=== PATIENT | female | born 1955 | race Caucasian/White ===

== ENCOUNTER 2016-10-28 06:17 | Day surgery (SDC) | payer OTHER ==
[2016-10-27 15:28] VITALS: BMI 34.1
[2016-10-28] VITALS (16 sets, daily range): BP systolic 124–156; BP diastolic 61–93; PULSE 58–78; RESP 17–18; Ht 152.4 cm; Wt 82.0 kg
[~2016-10-28] VITALS: Ht 152.4 cm; Wt 82.0 kg
[2016-10-28] MEDS ORDERED: FENTAnyl 50 MCG/ML VIAL ONE ×2 (07:00→11:30)
[2016-10-28] MEDS ORDERED: SOD CHLORIDE 0.9% 1,000 ML IV SCH (07:00)
[2016-10-28] MEDS ORDERED: CEFAZOLIN 2 GM/50 ML (PMX) 50 ML IVPB SCH (07:00)
[2016-10-28] MEDS ORDERED: PROPOFOL 40 ML ONE (09:58)
[2016-10-28] MEDS ORDERED: ISOSULFAN BLUE 1% 5 ML INJ SC ONE (10:04)
[2016-10-28 10:14] LABS: BASOPHILS % 0.7 % (0.0-2.0); EOSINOPHILS # 0.3 10^3/ul (0.0-0.5); EOSINOPHILS % 6.4 % (0.0-7.0); HEMATOCRIT 36.5 % (37.0-47.0); LYMPHOCYTES # 1.3 10^3/ul (0.8-2.9); LYMPHOCYTES % 29.1 % (15.0-51.0); MEAN CORPUSCULAR HEMOGLOBIN 30.6 pg (29.0-33.0); MEAN CORPUSCULAR HGB CONC 32.9 g/dl (32.0-37.0); MEAN CORPUSCULAR VOLUME 93.1 fl (82.0-101.0); MEAN PLATELET VOLUME 9.9 fl (7.4-10.4); MONOCYTE # 0.3 10^3/ul (0.3-0.9); MONOCYTES % 7.6 % (0.0-11.0); NEUTROPHIL # 2.4 10^3/ul (1.6-7.5); PLATELET COUNT 278 10^3/UL (140-440); RED BLOOD COUNT 3.92 10^6/ul (4.20-5.40); RED CELL DISTRIBUTION WIDTH 13.6 % (11.5-14.5); WHITE BLOOD COUNT 4.4 10^3/ul (4.8-10.8)
[2016-10-28 10:18] LABS: CALCIUM 8.9 mg/dl (8.4-10.2); CREATININE 0.51 mg/dl (0.44-1.00); POTASSIUM 4.4 mmol/L (3.5-5.1)
[2016-10-28 10:24] LABS: INR 0.92; PARTIAL THROMBOPLASTIN TIME 25.9 Sec (25.0-35.0); PROTIME 12.4 Sec (12.2-14.2)
[2016-10-28] MEDS ORDERED: LEVO25TA53 PO (10:28)
[2016-10-28] MEDS ORDERED: OMEP40CA6 PO (10:28)
[2016-10-28] MEDS ORDERED: NOL20 PO (10:28)
--- NOTE | 2016-10-28 10:28 | RADRPT ---
PROCEDURE: XR Chest. CLINICAL INDICATION: Breast cancer, preoperative TECHNIQUE: Single frontal view of the chest was obtained COMPARISON: None FINDINGS: The heart and mediastinum are within normal limits. The lungs are clear. There is no pleural effusion or pneumothorax. RPTAT: AA IMPRESSION: No acute disease. .Fadi Bacon MD, MD Date Time Electronically viewed and signed by .Fadi Bacon MD, on 10/28/2016 10:28 .S/
[2016-10-28] MEDS ORDERED: hydrALAzine 20 MG INJ IV PRN (10:30)
[2016-10-28] MEDS ORDERED: HYDROmorphONE (0.2 MG/ML) 10ML SYG IV PRN ×3 (10:30)
[2016-10-28] MEDS ORDERED: MEPERIDINE 25 MG INJ IV PRN (10:30)
[2016-10-28] MEDS ORDERED: LABETALOL HCL 20MG INJ IV PRN (10:30)
[2016-10-28] MEDS ORDERED: OXYCODONE/ACETAMINOPHEN (5/325) TAB PO PRN ×2 (10:30)
[2016-10-28] MEDS ORDERED: ONDANSETRON 4 MG INJ IV PRN (10:30)
[2016-10-28] MEDS ORDERED: FENTAnyl 50 MCG/ML VIAL IV PRN ×3 (10:30)
[2016-10-28] MEDS ORDERED: EPHEDrine SULFATE 50 MG/5 ML SYG IV PRN (10:30)
[2016-10-28] MEDS ORDERED: DEXAMETHASONE 4 MG/ML 1 ML INJ ONE (11:19)
--- NOTE | 2016-10-28 11:50 | RADRPT ---
Vent Rate: 55 bpm RR Interval: 0 msec CO Interval: 146 msec QRS Duration: 84 msec QT Interval: 458 msec QTC Interval: 438 msec P-R-T [place]: 37 - -26 - 22 degrees Sinus bradycardia Cannot rule out Anterior infarct , age undetermined Abnormal ECG Electronically Signed By: Bakari Bryan [id number]
[2016-10-28] MEDS ORDERED: ONDANSETRON 4 MG INJ ONE (12:26)
--- NOTE | 2016-10-28 13:02 | OPR ---
DATE OF OPERATION: 10/28/2016 PREOPERATIVE DIAGNOSIS: Invasive cancer, right breast. POSTOPERATIVE DIAGNOSIS: Invasive cancer, right breast. OPERATION PERFORMED: Right needle-directed partial mastectomy and axillary dissection utilizing sen tinel lymph node technique. SURGEON: Ramírez Sheets MD PLANER TAILER: Saúl Mcmanus MD ANESTHESIA: General. ANESTHESIOLOGIST: Dr. Mcfarlane. INDICATIONS FOR PROCEDURE: The patient is a 61-year-old female. She had a previous left breast can cer that was treated in [facility]. She was being followed with surveillance mammography and was fou nd to have a suspicious lesion in the right breast. Subsequent workup including biopsy revealed an approximately 1 cm well-differentiated cancer. She was counseled as to the risks versus benefits of needle-directed right partial mastectomy and sentinel lymph node biopsy. She consented and was sindi eduled for surgery. DESCRIPTION OF PROCEDURE: The patient on the morning of surgery, presented to [facility] where she underwent localization of the lesion performed by attending [facility] radiologist, Dr. Xena Kingsley. Subsequently, she was brought to the operating theater, placed under general anesthesia. The right breast and axillary region was prepped and draped in usu al sterile fashion. Approximately 4 mL of 1% Lymphazurin blue dye was then injected peritumorally. The breast was gently massaged for approximately 12 minutes. At this point, a 3 to 4 cm incision w as made in the right axillary hairline. Subcutaneous tissue was dissected with cautery down through the clavipectoral fascia. A dye-stained lymphatic was identified, but on tracing it deep into leve l I tissue, a definite sentinel node was not appreciated. Therefore, Dr. Sheets made the decision to remove level I lymph node tissue with blunt dissection along the chest wall. The long thoracic ner ve was identified and kept out of harm's way. More superiorly, the axillary vein and thoracodorsal neurovascular bundles were identified and kept out of harm's way. Level I anyi tissue was then met iculously resected with a combination of cautery and the LigaSure device. Specimen was sent for alberta ss analysis and subsequently for permanent pathologic analysis. The wound was irrigated. Minimal b leeding was controlled with cautery. A #10 Croatian Gabriel-Navarro drain was then brought through the right mid axillary wall, cut to size, laid within the axilla. It was secured in place with 2-0 nylo n suture in the standard fashion. The incision was then closed with a 4-0 Vicryl suture in subcutic ular fashion. Attention was then directed to performing the partial mastectomy. A curvilinear incision was made i n the region of the previously placed localization wire. Subcutaneous tissue was dissected with cau angela. The skin edges were then elevated with skin hooks and wide circumferential dissection of the tissue associated with the wire then took place, taking great care to ensure adequate margin. Speci men was elevated, transected, oriented, and sent for permanent pathologic analysis. The wound was i rrigated. Minimal bleeding was controlled with cautery, and the skin incision was reapproximated wi th a 4-0 Vicryl suture in subcuticular fashion. Benzoin and Steri-Strips were applied to both incis ions. The patient tolerated the procedure well. The estimated blood loss was 30 mL. There were no complications and the patient was transported in stable condition to the recovery room where a circ umferential compression dressing was applied. Dictated By: RAMÍREZ MARIN/AMBIKA Conf#: [id number] DID#: [id number]
== END 2016-10-28 21:00 | disposition home or self-care (01) ==
LOC: SDS 06:17
PROVIDERS: ATTEND Surgery Surgical Oncology
DX: D05.11 Intraductal carcinoma in situ of right breast (principal)
CPT/HCPCS: 19301; 38500; 38792; 71010; 80048; 85025; 85610; 85730; 88307; 93005; J1100; J1170; J2405; J3010; Z7512; Z7610; Q9968

== ENCOUNTER 2016-11-19 08:05 | Day surgery (SDC) | payer OTHER ==
[~2016-11-19] VITALS: Ht 154.9 cm; Wt 81.9 kg
[2016-11-19] VITALS (13 sets, daily range): BP systolic 93–157; BP diastolic 54–76; PULSE 62–76; RESP 12–18; Ht 154.9 cm; Wt 81.9 kg
[~2016-11-19 08:05] MED LIST: LEVO25TA53 PO; NOL20 PO; OMEP40CA6 PO
--- NOTE | 2016-11-19 10:11 | RADRPT ---
PROCEDURE: XR Chest. CLINICAL INDICATION: Preop. TECHNIQUE: Single frontal chest x-ray. COMPARISON: Chest radiograph 11/25/2016. FINDINGS: The cardiomediastinal silhouette is unremarkable. Aortic atherosclerotic vascular calcifications are identified. Prominent interstitial pulmonary markings are noted, likely represent chronic changes. There is sca rring in the left upper lung zone. No pneumothorax, pleural effusion or consolidation is seen. No acute osseous abnormality is noted. IMPRESSION: 1. Chronic interstitial pulmonary changes. Scarring in the left upper lung zone. No significant int erval change. 2. Mild aortic atherosclerosis. 3. Otherwise no acute cardiopulmonary abnormality. RPTAT: PP .Mellisa Nunes MD, MD Date Time Electronically viewed and signed by .Mellisa Nunes MD, on 11/19/2016 10:11 .N/
[2016-11-19 10:40] LABS: ADD SCAN DIFF NO
[2016-11-19 10:43] LABS: EOSINOPHILS # 0.2 10^3/ul (0.0-0.5); EOSINOPHILS % 4.8 % (0.0-7.0); HEMATOCRIT 34.9 % (37.0-47.0); HEMOGLOBIN 11.9 g/dl (12.0-16.0); LYMPHOCYTES # 1.4 10^3/ul (0.8-2.9); MEAN CORPUSCULAR HEMOGLOBIN 31.9 pg (29.0-33.0); MEAN CORPUSCULAR HGB CONC 34.1 g/dl (32.0-37.0); MEAN CORPUSCULAR VOLUME 93.6 fl (82.0-101.0); MEAN PLATELET VOLUME 9.7 fl (7.4-10.4); MONOCYTE # 0.3 10^3/ul (0.3-0.9); MONOCYTES % 7.9 % (0.0-11.0); PLATELET COUNT 261 10^3/UL (140-415); RED BLOOD COUNT 3.73 10^6/ul (4.20-5.40); RED CELL DISTRIBUTION WIDTH 13.4 % (11.5-14.5); WHITE BLOOD COUNT 3.9 10^3/ul (4.8-10.8)
[2016-11-19 10:50] LABS: INR 0.98
[2016-11-19 10:51] LABS: PARTIAL THROMBOPLASTIN TIME 25.4 Sec (25.0-35.0)
[2016-11-19] MEDS ORDERED: SOD CHLORIDE 0.9% 1,000 ML IV ONE (11:00)
[2016-11-19] MEDS ORDERED: CEFAZOLIN 2 GM/50 ML (PMX) 50 ML IVPB ONE (11:00)
[2016-11-19 11:25] LABS: CALCIUM 8.9 mg/dl (8.4-10.2); CREATININE 0.52 mg/dl (0.44-1.00); POTASSIUM 4.6 mmol/L (3.5-5.1)
[2016-11-19] MEDS ORDERED: ROCURONIUM 50 MG INJ ONE (11:38)
[2016-11-19] MEDS ORDERED: LIDOCAINE 100 MG SYRINGE ONE (11:38)
[2016-11-19] MEDS ORDERED: MIDAZOLAM 1 MG/ML 2 ML INJ ONE (11:38)
[2016-11-19] MEDS ORDERED: NEOSTIGMINE 3 MG/3 ML SYRINGE ONE (11:38)
[2016-11-19] MEDS ORDERED: GLYCOPYRROLATE 0.4 MG INJ ONE (11:38)
[2016-11-19] MEDS ORDERED: ONDANSETRON 4 MG INJ ONE (11:38)
[2016-11-19] MEDS ORDERED: DEXAMETHASONE 4 MG/ML 1 ML INJ ONE (11:38)
[2016-11-19] MEDS ORDERED: PROPOFOL 20 ML ONE (11:38)
[2016-11-19] MEDS ORDERED: CEFAZOLIN 1 GM INJ ONE (11:38)
[2016-11-19] MEDS ORDERED: TRIMETHOBENZAMIDE 100 MG/ML VIAL IM PRN (12:30)
[2016-11-19] MEDS ORDERED: HYDROCODONE/APAP (7.5/325) TAB PO PRN (12:30)
[2016-11-19] MEDS ORDERED: HYDROmorphONE (0.2 MG/ML) 10ML SYG IV PRN ×2 (12:30)
[2016-11-19] MEDS ORDERED: DIPHENHYDRAMINE 50 MG INJ IV PRN (12:30)
[2016-11-19] MEDS ORDERED: MEPERIDINE 25 MG INJ IV PRN (12:30)
[2016-11-19] MEDS ORDERED: LABETALOL HCL 20MG INJ IV PRN (12:30)
[2016-11-19] MEDS ORDERED: FENTAnyl 50 MCG/ML VIAL IV PRN ×3 (12:30)
[2016-11-19] MEDS ORDERED: MIDAZOLAM 1 MG/ML 2 ML INJ IV PRN (12:30)
[2016-11-19] MEDS ORDERED: EPHEDrine SULFATE 50 MG/5 ML SYG IV PRN (12:30)
[2016-11-19] MEDS ORDERED: ONDANSETRON 4 MG INJ IV PRN (12:30)
[2016-11-19] MEDS ORDERED: hydrALAzine 20 MG INJ IV PRN (12:30)
--- NOTE | 2016-11-19 12:34 | OPR ---
DATE OF OPERATION: 11/19/2016 PREOPERATIVE DIAGNOSIS: Invasive cancer of the right breast, need for right reexcision partial mast ectomy. POSTOPERATIVE DIAGNOSIS: Invasive cancer of the right breast, need for right reexcision partial mas tectomy. OPERATION PERFORMED: Right reexcision partial mastectomy. ANESTHESIA: General. ANESTHESIOLOGIST: Clayton Fields MD SURGEON: Ramírez Sheets MD 1ST [employer]: Wilmer Richardson MD INDICATIONS FOR PROCEDURE: The patient is a 61-year-old female who was diagnosed with invasive canc er of the right breast. She underwent surgical treatment and on pathology was found to have inadequ ate margins. She was counseled as to need for reexcision partial mastectomy. She consented and was scheduled for surgery. DESCRIPTION OF PROCEDURE: The patient was brought to the operating theater, placed under general an esthesia. The right breast was prepped and draped in the usual sterile fashion. The previous surgi ana incision was reincised using 15 blade scalpel. The seroma cavity was entered. The seroma was e vacuated with suction. The inadequate margin was posterior. Therefore, a complete 360 degree resec tion of the posterior margin took place. Specimen was transected, oriented, and sent for permanent pathologic analysis. The wound was irrigated. Minimal bleeding was controlled with cautery. The s kin was then reapproximated with a deep dermal layer of 4-0 Vicryl sutures in interrupted fashion, f ollowed by final skin approximation with 5-0 PDS sutures in subcuticular fashion. Benzoin and Steri -Strips were then applied. Patient tolerated procedure well. Estimated blood loss was 20 mL. Ther e were no complications and the patient was transported in stable condition to the recovery room. Dictated By: RAMÍREZ SHEETS MD TL/NTS Conf#: [id number] DID#: [id number] CC: WILMER RICHARDSON MD;*EndCC*
[2016-11-19] MEDS: HYDROmorphONE (0.2 MG/ML) 10ML SYG IV PRN ×2 (13:03→13:19)
== END 2016-11-19 15:30 | disposition home or self-care (01) ==
LOC: SDS 08:05
PROVIDERS: ATTEND Surgery Surgical Oncology
DX: N64.1 Fat necrosis of breast (principal); N60.31 Fibrosclerosis of right breast; Z85.3 Personal history of malignant neoplasm of breast
CPT/HCPCS: 19303; 71010; 80048; 85025; 85610; 85730; 88307; 93005; J0690; J1100; J1170; J2001; J2175; J2250; J2405; J2710; J3010; Z7512; Z7610

== ENCOUNTER 2016-12-09 15:16 | Emergency (ER) | payer OTHER ==
[~2016-12-09] VITALS: Wt 76.0 kg
[2016-12-09] MEDS ORDERED: ONDANSETRON 4 MG INJ IV STA (17:20)
[2016-12-09] MEDS: morphine 4 MG/ML VIAL IV STA ×2 (17:20→18:55)
[2016-12-09] MEDS ORDERED: SOD CHLORIDE 0.9% 1,000 ML IV STA (17:20)
--- NOTE | 2016-12-09 17:49 | RADRPT ---
PROCEDURE: XR Chest 1 View. CLINICAL INDICATION: Abnormal breath sounds, abdominal pain. TECHNIQUE: AP view of the chest was obtained. COMPARISON: November 19, 2016 FINDINGS: The heart size is within normal limits. Calcified atherosclerosis is noted in the aorta. The lungs are hyperexpanded. No consolidations are identified. No pneumothorax is seen. Diffuse mild intersti tial prominence in both lungs is unchanged. Osseous structures are intact. IMPRESSION: Calcified atherosclerosis in the aorta. Hyperexpanded lungs with chronic mild interstitial prominence in both lungs. Findings could reflect COPD. RPTAT: AA .Dajuan Mayes MD, Date Time Electronically viewed and signed by .Dajuan Mayes MD, on 12/09/2016 17:49 .P/
[2016-12-09] MEDS ORDERED: CLINDAMYCIN 900 MG/D5W (PMX) 50 ML IVPB SCH (18:30)
[2016-12-09 19:09] LABS: ADD SCAN DIFF NO
[2016-12-09 19:14] LABS: BASOPHILS % 0.8 % (0.0-2.0); EOSINOPHILS # 0.2 10^3/ul (0.0-0.5); EOSINOPHILS % 3.7 % (0.0-7.0); HEMATOCRIT 37.1 % (37.0-47.0); HEMOGLOBIN 12.7 g/dl (12.0-16.0); LYMPHOCYTES # 1.7 10^3/ul (0.8-2.9); MEAN CORPUSCULAR HEMOGLOBIN 31.3 pg (29.0-33.0); MEAN CORPUSCULAR HGB CONC 34.2 g/dl (32.0-37.0); MEAN CORPUSCULAR VOLUME 91.4 fl (82.0-101.0); MEAN PLATELET VOLUME 10.4 fl (7.4-10.4); MONOCYTE # 0.6 10^3/ul (0.3-0.9); MONOCYTES % 11.2 % (0.0-11.0); NEUTROPHIL # 2.6 10^3/ul (1.6-7.5); NEUTROPHILS % 50.1 % (39.0-77.0); PLATELET COUNT 272 10^3/UL (140-415); RED BLOOD COUNT 4.06 10^6/ul (4.20-5.40); RED CELL DISTRIBUTION WIDTH 13.2 % (11.5-14.5); WHITE BLOOD COUNT 5.1 10^3/ul (4.8-10.8)
[2016-12-09 19:22] LABS: INR 0.95; PROTIME 12.7 Sec (12.2-14.2)
[2016-12-09 19:33] LABS: POTASSIUM 5.9 mmol/L (3.5-5.1)
[2016-12-09 19:35] LABS: CREATININE 0.69 mg/dl (0.44-1.00)
[2016-12-09 19:36] LABS: CALCIUM 9.5 mg/dl (8.4-10.2)
[2016-12-09] MEDS ORDERED: IBUP-1542 PO (19:45)
[2016-12-09] MEDS ORDERED: CLIN-73 PO (19:45)
[2016-12-09 20:04] VITALS: BP 138/77; PULSE 70; RESP 17; TEMP 98.3
--- NOTE | 2016-12-09 20:07 | RADRPT ---
PROCEDURE: Right upper extremity venous ultrasound CLINICAL INDICATION: Right arm pain and swelling TECHNIQUE: Multiple color Doppler and spectral Doppler images of the right upper extremity venous system were obtained. Images were reviewed on a high-resolution PACS workstation. COMPARISON: None FINDINGS: Normal compressibility and color flow is seen in the right internal jugular vein, subclavian vein, a xillary vein, brachial vein, radial vein, ulnar vein, basilic vein, and cephalic vein. Normal respir atory ability with augmentation is seen. IMPRESSION: No sonographic evidence for a deep venous thrombosis. RPTAT: HPNM Physician Grace Date Time Electronically viewed and signed by Physician Grace on 12/09/2016 20:07 /
--- NOTE | 2016-12-09 20:26 | ERD ---
ER Documentation Chief Complaint Date/Time DATE: 12/09/16 TIME: 20:21 Chief Complaint POST OP PAIN FROM R BREAST MASTECTOMY HPI 61-year-old woman presents with 2-3 days of right lateral breast redness and pain status post right partial mastectomy about 3 weeks ago. Patient has a history of bilateral breasts carcinoma and had partial mastectomy of the left breast a year ago and at that time had both chemo and radiation therapy. She denies discharge from the right breast or nipple, no fevers or chills, no complaints of chest pain or shortness of breath. Patient was using an antibiotic ointment for the last 2-3 days over the right breast without relief. Patient does have scheduled follow-up with her surgeon early next week. ROS All systems reviewed and are negative except as per history of present illness. Medications Home Meds Active Scripts Ibuprofen* (Motrin*) 600 Mg Tab, 600 MG PO Q8 for PAIN AND/OR INFLAMMATION, #30 TAB Prov:LETY GOMEZ MD 12/09/16 Clindamycin Hcl* (Clindamycin Hcl*) 300 Mg Capsule, 300 MG PO Q6 for 10 Days, # 40 CAP Prov:LETY GOMEZ MD 12/09/16 Reported Medications Tamoxifen Citrate* (Tamoxifen Citrate*) 20 Mg Tab, 20 MG PO DAILY, TAB 10/28/16 Omeprazole* (Omeprazole*) 40 Mg Capsule.dr, 40 MG PO DAILY, #30 CAP 10/28/16 Levothyroxine Sodium* (Levothyroxine Sodium*) 25 Mcg Tablet, 25 MCG PO BEFORE BREAKFAST, #30 TAB 10/28/16 Allergies Allergies: Coded Allergies: No Known Allergy (Unverified , 11/19/16) PMhx/Soc Breast cancer, gastritis, hypothyroidism History of Surgery: Yes (HYSTERECTOMY) Anesthesia Reaction: No Hx Neurological Disorder: No Hx Respiratory Disorders: No Hx Cardiac Disorders: No Hx Psychiatric Problems: No Hx Miscellaneous Medical Probl: Yes (HIGH CHOL, BILATERAL MASTECTOMY) Hx Alcohol Use: No Hx Substance Use: No Hx Tobacco Use: No Smoking Status: Never smoker FmHx Family History: No diabetes Physical Exam Vitals Vital Signs Date Time Temp Pulse Resp B/P Pulse Ox O2 Delivery O2 Flow Rate FiO2 12/09/16 20:04 98.3 70 17 138/77 99 Room Air 12/09/16 15:29 98.0 89 18 188/102 98 Physical Exam GENERAL: Well-developed, well-nourished, well-hydrated, in no apparent distress , looks nontoxic in appearance. Afebrile HEENT: Moist mucous membranes, pink conjunctiva, no cervical spine tenderness or step-off deformities, no goiter, no jaundice or icterus, extraocular movements intact without pain. No submandibular induration, and no pharyngeal erythema NEURO: Alert and oriented 3, cranial nerves II through XII intact bilaterally, pupils equal round reactive to light, no focal deficits or facial asymmetry, sensation intact distally Strength 5/5 in upper and lower extremities bilaterally CARDIAC: Regular rate and rhythm, no murmurs rubs or gallops LUNGS: Clear bilaterally no wheezing crackles or stridor ABDOMEN: Soft nontender, no guarding, no rigidity, no rebound, no psoas sign no obturator sign. Normoactive bowel sounds SKIN: Soft tissue erythema to the right lateral breast surrounding the surgical scar. Erythema does not extend to the nipple or axilla. There is no purulent discharge or wound dehiscence. EXTREMITIES: No clubbing cyanosis or edema, calves are bilaterally symmetrical, no Homans sign, no popliteal cord sign. Distal pulses equal and bilateral PSYCH: Normal affect without agitation or irritability Result Diagram: 12/09/16190112/09/161901 Results 24 hrs Laboratory Tests Test 12/09/16 19:02 White Blood Count 5.110^3/ul Red Blood Count 4.0610^6/ul Hemoglobin 12.7g/dl Hematocrit 37.1% Mean Corpuscular Volume 91.4fl Mean Corpuscular Hemoglobin 31.3pg Mean Corpuscular Hemoglobin Concent 34.2g/dl Red Cell Distribution Width 13.2% Platelet Count 09846^3/UL Mean Platelet Volume 10.4fl Neutrophils % 50.1% Lymphocytes % 34.0% Monocytes % 11.2% Eosinophils % 3.7% Basophils % 0.8% Nucleated Red Blood Cells % 0.0/100WBC Neutrophils # 2.610^3/ul Lymphocytes # 1.710^3/ul Monocytes # 0.610^3/ul Eosinophils # 0.210^3/ul Basophils # 0.010^3/ul Nucleated Red Blood Cells # 0.010^3/ul Prothrombin Time 12.7Sec Prothrombin Time Ratio 1.0 INR International Normalized Ratio 0.95 Sodium Level 142mmol/L Potassium Level 5.9mmol/L Chloride Level 104mmol/L Carbon Dioxide Level 28mmol/L Anion Gap 16 Blood Urea Nitrogen 9mg/dl Creatinine 0.69mg/dl Glucose Level 96mg/dl Calcium Level 9.5mg/dl Current Medications Medications (Trade) Dose Ordered Sig/Catina Route PRN Reason Start Time Stop Time Status Last Admin Dose Admin Sodium Chloride (NS) 1,000 ml @ 1,000 mls/hr Q1H STAT IV 12/09/16 17:20 12/09/16 18:19 DC 12/09/16 18:54 Morphine Sulfate (morphine) 4 mg ONCE STAT IV 12/09/16 17:20 12/09/16 17:21 DC Ondansetron HCl 4 mg 4 mg ONCE STAT IV 12/09/16 17:20 12/09/16 17:21 DC 12/09/16 18:54 Clindamycin HCl/ Dextrose (Cleocin 900 Mg/ D5W (Pmx)) 50 ml @ 50 mls/hr ONCE IVPB 12/09/16 18:30 12/09/16 19:29 DC 12/09/16 19:05 Procedures/MDM IV line was established patient was placed on cardiac tech rhythm strip revealed a sinus rhythm at about 70 bpm with upright P and T waves. Patient was afebrile. I administered 1 L normal saline intravenously, morphine 4 mg IV, Zofran 4 mg IV , and clindamycin 900 mg IV 1. Chest X-ray 1V Interpreted by me: Soft Tissue: No acute abnormalities Bones: No acute abnormalities Mediastinum/Cardiac Silhouette/Lungs: No acute abnormalities Color Doppler venous ultrasound of the right upper extremity was performed, all veins were compressible, no deep vein thrombosis noted. CBC was unremarkable, electrolytes revealed artifactual hyperkalemia, coagulation profile was normal. Patient has no history of hyperkalemia or kidney disease and I find no reason for her to develop this level of hyperkalemia. I am confident findings are artifactual and patient can be safely discharged with oral antibiotics. I did tell her to return tomorrow for reevaluation of the cellulitis of the right breast if it increases in size, pain, or if she develops a fever she may require inpatient management with IV antibiotics. She understood my instructions. Differential diagnoses considered, included but not limited to acute coronary syndrome, pulmonary embolism, aortic dissection, abdominal aortic aneurysm, sepsis, stroke, meningitis, encephalitis, pneumonia, appendicitis, cholecystitis , bowel obstruction, pyelonephritis, nephrolithiasis, cystitis, as well as metabolic, hematologic, and electrolyte abnormalities. As well as abscess, cellulitis, fractures, and dislocations. Patient feels much better at this time, and vital signs are normal, symptoms have improved. I did give strict instructions to return to the ED if symptoms continue or worsen, patient will otherwise follow-up with primary care physician. Patient understood instructions and agreed to plan. Departure Diagnosis: Primary Impression: Cellulitis Site of cellulitis: other site Qualified Code: L03.818 - Cellulitis of other specified site Condition: Good Patient Instructions: Cellulitis LETY GOMEZ MD Dec 09, 2016 20:26
== END 2016-12-09 20:05 | disposition home or self-care (01) ==
LOC: FTE 15:16
DX: L03.313 Cellulitis of chest wall (principal); E03.9 Hypothyroidism, unspecified; R10.9 Unspecified abdominal pain; Z85.3 Personal history of malignant neoplasm of breast
CPT/HCPCS: 71010; 80048; 85025; 85610; 87040; 93971; J2270; J2405; J7030; Z7610; 36415; 96374; 96375

== ENCOUNTER 2016-12-13 14:58 | Inpatient (IN) | payer OTHER ==
[~2016-12-13] VITALS: Ht 154.9 cm; Wt 83.1 kg
[~2016-12-13 14:58] MED LIST changes: +CLIN-73 PO; +IBUP-1542 PO
--- NOTE | 2016-12-13 17:10 | ERA ---
ER Documentation Chief Complaint Date/Time DATE: 12/13/16 TIME: 17:09 Chief Complaint BREAST PAIN FROM REDNESS AND ITCHING. NOT BETTER WITH ABX AND CREAMS HPI The patient is a 61-year-old female, presenting to the ER because of right breast redness and pain for the last few days. She had partial right mastectomy on November 19, 2016. She has been taking clindamycin with minimal response. She was seen by her oncologist Dr. Baird and her general surgeon Dr Sheets who sent her to the hospital for admission for IV antibiotic. She denies fever, chills, neck pain, chest pain, dyspnea, abdominal pain, vomiting, dysuria , diarrhea. She does not smoke nor drink Past medical history: History of breast cancer, hypothyroidism, peptic ulcer disease Past surgical history: Bilateral partial mastectomy ROS All systems reviewed and are negative except as per history of present illness. Medications Home Meds Active Scripts Ibuprofen* (Motrin*) 600 Mg Tab, 600 MG PO Q8 for PAIN AND/OR INFLAMMATION, #30 TAB Prov:LETY GOMEZ MD 12/09/16 Clindamycin Hcl* (Clindamycin Hcl*) 300 Mg Capsule, 300 MG PO Q6 for 10 Days, # 40 CAP Prov:LETY GOMEZ MD 12/09/16 Reported Medications Omeprazole* (Omeprazole*) 20 Mg Capsule., 40 MG PO DAILY, #30 CAP 12/13/16 Tamoxifen Citrate* (Tamoxifen Citrate*) 20 Mg Tab, 20 MG PO DAILY, TAB 10/28/16 Levothyroxine Sodium* (Levothyroxine Sodium*) 25 Mcg Tablet, 25 MCG PO BEFORE BREAKFAST, #30 TAB 10/28/16 Discontinued Reported Medications Omeprazole* (Omeprazole*) 40 Mg Capsule., 40 MG PO DAILY, #30 CAP 10/28/16 Allergies Allergies: Coded Allergies: morphine (Unverified Adverse Reaction, Unknown, 12/13/16) PMhx/Soc History of Surgery: Yes (HYSTERECTOMY) Anesthesia Reaction: No Hx Neurological Disorder: No Hx Respiratory Disorders: No Hx Cardiac Disorders: No Hx Psychiatric Problems: No Hx Miscellaneous Medical Probl: Yes (HIGH CHOL, BILATERAL MASTECTOMY) Hx Alcohol Use: No Hx Substance Use: No Hx Tobacco Use: No Physical Exam Vitals Vital Signs Date Time Temp Pulse Resp B/P Pulse Ox O2 Delivery O2 Flow Rate FiO2 12/13/16 18:54 97.8 64 16 144/77 95 Room Air 12/13/16 15:19 98.5 94 20 200/110 98 Physical Exam Const: No acute distress. Head: Atraumatic. Eyes: Normal Conjunctiva. ENT: Normal External Ears, Nose and Mouth. Neck: Full range of motion. No meningismus. Resp: Clear to auscultation bilaterally. Cardio: Regular rate and rhythm, no murmurs. Right breast is erythematous and warm to touch, no discharge Abd: Soft, non distended, normal bowel sounds, non tender. Skin: No petechiae or rashes. Back: No midline or flank tenderness. Ext: No cyanosis, or edema. Neur: Awake and alert. No focal deficit Psych: Normal Mood and Affect. Result Diagram: 12/13/16174612/13/161746 Results 24 hrs Laboratory Tests Test 12/13/16 17:47 White Blood Count 5.110^3/ul Red Blood Count 3.9010^6/ul Hemoglobin 12.2g/dl Hematocrit 36.3% Mean Corpuscular Volume 93.1fl Mean Corpuscular Hemoglobin 31.3pg Mean Corpuscular Hemoglobin Concent 33.6g/dl Red Cell Distribution Width 13.6% Platelet Count 40689^3/UL Mean Platelet Volume 10.1fl Neutrophils % 55.7% Lymphocytes % 31.4% Monocytes % 8.1% Eosinophils % 3.6% Basophils % 0.8% Nucleated Red Blood Cells % 0.0/100WBC Neutrophils # 2.810^3/ul Lymphocytes # 1.610^3/ul Monocytes # 0.410^3/ul Eosinophils # 0.210^3/ul Basophils # 0.010^3/ul Nucleated Red Blood Cells # 0.010^3/ul Prothrombin Time 12.0Sec Prothrombin Time Ratio 0.9 INR International Normalized Ratio 0.89 Activated Partial Thromboplast Time 25.8Sec Sodium Level 136mmol/L Potassium Level 4.4mmol/L Chloride Level 103mmol/L Carbon Dioxide Level 24mmol/L Anion Gap 13 Blood Urea Nitrogen 9mg/dl Creatinine 0.46mg/dl Glucose Level 98mg/dl Lactic Acid Level 2.3mmol/L Calcium Level 9.1mg/dl Total Bilirubin 0.1mg/dl Direct Bilirubin 0.00mg/dl Indirect Bilirubin 0.1mg/dl Aspartate Amino Transf (AST/SGOT) 27IU/L Alanine Aminotransferase (ALT/SGPT) 42IU/L Alkaline Phosphatase 76IU/L Total Protein 6.9g/dl Albumin 3.8g/dl Globulin 3.10g/dl Albumin/Globulin Ratio 1.22 Current Medications Medications (Trade) Dose Ordered Sig/Catina Route PRN Reason Start Time Stop Time Status Last Admin Dose Admin Vancomycin HCl 250 ml @ 125 mls/hr ONCE IVPB 12/13/16 17:30 12/13/16 19:29 12/13/16 18:37 Piperacillin Sod/ Tazobactam Sod (Zosyn 3.375gm/ 100 ml (Pmx)) 100 ml @ 200 mls/hr ONCE ONCE IVPB 12/13/16 17:30 12/13/16 17:59 DC 12/13/16 17:56 Procedures/MDM EKG: Read by emergency physician Rate/Rhythm: Normal Sinus Rhythm 65 beats/min QRS, ST, T-waves: No ST elevation, no T inversion Impression: Normal EKG [place] [id number] Radiology Main Line: [phone] DIAGNOSTIC IMAGING REPORT Patient: JORDON SHULTZ : 1955 Age: 61 Sex: F MR #: [id number] DOS: 12/13/16 1718 Ordering MD: ESTELLA GALARZA MD Location: E/R Room/Bed: PROCEDURE: Chest x-ray CLINICAL INDICATION: Sepsis TECHNIQUE: Chest single view COMPARISON: 12/09/2016 FINDINGS: The heart is normal in size. The pulmonary vessels are normal in caliber. There is mild stable scarring in the left upper lung. Lungs otherwise clear. The costophrenic angles are sharp. The visualized bony thorax is unremarkable. IMPRESSION: No acute cardiopulmonary disease. No interval change RPTAT: HH .Fermin Castaneda MD, Date Time Electronically viewed and signed by .Fermin Castaneda MD, on 12/13/2016 17:54 .W/ CC: ESTELLA GALARZA MD MEDICAL MAKING DECISION: The patient is a 61-year-old, presenting with acute severe sepsis, acute right mastitis. She was treated with vancomycin IV, Zosyn IV, normal saline 30 mL/kg IV with good response. The differential diagnoses considered include but are not limited to cellulitis, abscess. Admit MDM: Patient's infectious symptoms have not stabilized and the patient is at risk of rapid decompensation. The patient will be admitted for careful hydration, antibiotic therapy, and infectious source control. Severe Sepsis criteria: Infectious source: Right mastitis End organ damage indicated by: Lactate > 2.0 mmol/L Sepsis Management: Time of recognition of severe sepsis/septic shock:7pm Within 3 hours of recognition: Blood cultures x 2 before broad-spectrum antibiotics: Yes 30 ml/kg NS bolus completed Initial lactate 2.3 Repeat lactate pnd Critical Care: Critical care time 35 minutes Emergent fluid management while maintaining close respiratory support. Provision of immediate and broad-spectrum antibiotic therapy. Simultaneous assessment for possible sources in order to direct targeted therapy. Consideration for invasive and chemical support to prevent cardiopulmonary collapse. Departure Diagnosis: Primary Impression: Severe sepsis Additional Impression: Mastitis, right, acute Condition: Stable Comments I discussed the findings with the patient. I discussed the patient with her physician Dr. Chu who was made aware of the lab, the treatment, the patient condition. The patient is admitted to medical surgery bed at 6:10 PM The patient's blood pressure was elevated (>120/80) but appears stable without evidence of hypertension emergency or urgency. The patient was counseled about the risks of hypertension and urged to pursue outpatient monitoring and therapy within a week after discharge with their primary care physician. ESTELLA GALARZA MD Dec 13, 2016 17:09
[2016-12-13] MEDS ORDERED: VANCOMYCIN 1 GM (PMX) 250 ML IVPB SCH (17:30)
[2016-12-13] MEDS ORDERED: PIPER-TAZO 3.375 GM IV (PMX) 100 ML IVPB ONE (17:30)
[2016-12-13] MEDS ORDERED: OMEP20CA16 PO ×2 (17:46→19:57)
--- NOTE | 2016-12-13 17:54 | RADRPT ---
PROCEDURE: Chest x-ray CLINICAL INDICATION: Sepsis TECHNIQUE: Chest single view COMPARISON: 12/09/2016 FINDINGS: The heart is normal in size. The pulmonary vessels are normal in caliber. There is mild stable sca rring in the left upper lung. Lungs otherwise clear. The costophrenic angles are sharp. The visual ized bony thorax is unremarkable. IMPRESSION: No acute cardiopulmonary disease. No interval change RPTAT: HH .Fermin Castaneda MD, Date Time Electronically viewed and signed by .Fermin Castaneda MD, on 12/13/2016 17:54 .W/
[2016-12-13 17:56] LABS: ADD SCAN DIFF NO
[2016-12-13 17:58] LABS: BASOPHILS % 0.8 % (0.0-2.0); EOSINOPHILS # 0.2 10^3/ul (0.0-0.5); EOSINOPHILS % 3.6 % (0.0-7.0); HEMATOCRIT 36.3 % (37.0-47.0); HEMOGLOBIN 12.2 g/dl (12.0-16.0); LYMPHOCYTES # 1.6 10^3/ul (0.8-2.9); LYMPHOCYTES % 31.4 % (15.0-51.0); MEAN CORPUSCULAR HEMOGLOBIN 31.3 pg (29.0-33.0); MEAN CORPUSCULAR HGB CONC 33.6 g/dl (32.0-37.0); MEAN CORPUSCULAR VOLUME 93.1 fl (82.0-101.0); MEAN PLATELET VOLUME 10.1 fl (7.4-10.4); MONOCYTE # 0.4 10^3/ul (0.3-0.9); MONOCYTES % 8.1 % (0.0-11.0); NEUTROPHIL # 2.8 10^3/ul (1.6-7.5); NEUTROPHILS % 55.7 % (39.0-77.0); PLATELET COUNT 292 10^3/UL (140-415); RED CELL DISTRIBUTION WIDTH 13.6 % (11.5-14.5); WHITE BLOOD COUNT 5.1 10^3/ul (4.8-10.8)
[2016-12-13 18:08] LABS: ALBUMIN 3.8 g/dl (3.3-4.9); INR 0.89; PT RATIO 0.9
[2016-12-13 18:09] LABS: POTASSIUM 4.4 mmol/L (3.5-5.1)
[2016-12-13 18:11] LABS: ALBUMIN/GLOBULIN RATIO 1.22; BILIRUBIN,INDIRECT 0.1 mg/dl (0-1.1); BILIRUBIN,TOTAL 0.1 mg/dl (0.2-1.3); CREATININE 0.46 mg/dl (0.44-1.00); PARTIAL THROMBOPLASTIN TIME 25.8 Sec (25.0-35.0); TOTAL PROTEIN 6.9 g/dl (6.1-8.1)
[2016-12-13 18:12] LABS: CALCIUM 9.1 mg/dl (8.4-10.2)
[2016-12-13 18:54] VITALS: TEMP 97.8
[2016-12-13 19:15] VITALS: BP 141/74; PULSE 66; RESP 18
[2016-12-13 19:30] VITALS: Ht 154.9 cm; Wt 83.1 kg
[2016-12-13] MEDS ORDERED: SOD CHLORIDE 0.9% IV ONE (19:30)
[2016-12-13] MEDS ORDERED: VANCOMYCIN IV PER PHARMACY XX SCH (20:30)
[2016-12-13] MEDS ORDERED: ONDANSETRON 4 MG INJ IV PRN (20:30)
[2016-12-13] MEDS ORDERED: NACL 0.9% 3 ML SYG IV SCH (20:30)
[2016-12-13] MEDS ORDERED: DOCUSATE SODIUM 100 MG CAP PO PRN (20:30)
[2016-12-13] MEDS: HYDROCODONE/APAP (5/325) TAB PO PRN (21:55)
[2016-12-13] MEDS: 1/2 NS + KCL 20 MEQ 1,000 ML IV SCH (22:14)
[2016-12-14] MEDS: VANCOMYCIN 1 GM in NS 250 ML IVPB SCH ×2 (01:12→14:31)
[2016-12-14] MEDS: ACETAMINOPHEN 325 MG TAB PO PRN ×2 (01:25→08:45)
[2016-12-14 02:11] VITALS: BP 124/60; PULSE 68; RESP 18
--- NOTE | 2016-12-14 02:14 | HP ---
DATE OF ADMISSION: 12/13/2016 CHIEF COMPLAINT: Right breast tenderness and erythema. Patient is status post right partial mastec bong 3 weeks ago. HISTORY OF PRESENT ILLNESS: The patient is a 61-year-old female. The patient underwent a right par tial mastectomy for invasive cancer of the right breast on 11/19/2016 and the patient was discharged home. The patient noted to have some swelling and erythema and presented to the emergency room and was given prescription for clindamycin with no improvement. The patient was seen today in her onco logist's office, Dr. Vuong, and was recommended to go to the emergency room. The patient also had a n appointment with Dr. Sheets today. The patient also was sent for drainage, by radiology, of seroma , possible abscess of right breast and was also sent to [facility] Emergency Room for admission for IV antibiotics since the patient did not respond to p.o. clindamycin. The patient stated that she had chills at home. Does not know if she has fever, did not measure her temperatur e. The patient complains of severe tenderness in the right breast and right axilla. The patient de nies any chest pain, denies shortness of breath. The patient denies any bilateral lower extremity e guilherme. Denies any nausea, vomiting. The patient was started on vancomycin and Zosyn in the emergenc y room and patient is admitted for further evaluation and management. PAST MEDICAL HISTORY: Positive for bilateral cancer of the breast, hypothyroidism, peptic ulcer dis ease PAST SURGICAL HISTORY: The patient had a hysterectomy many years ago. The patient had bilateral pa rtial mastectomy. Patient has left mastectomy in 2015 and right partial mastectomy in November 2016. FAMILY HISTORY: Noncontributory. SOCIAL HISTORY: The patient lives at home with her family. The patient denies any tobacco use, den ies any illicit drug use, denies any alcohol use. ALLERGIES: THE PATIENT IS ALLERGIC TO MORPHINE. HOME MEDICATIONS: 1. Motrin. 2. Clindamycin 3. Omeprazole. 4. Tamoxifen. 5. Levothyroxine. REVIEW OF SYSTEMS: A 12-point review of systems is negative unless what is mentioned in the HPI. PHYSICAL ASSESSMENT: GENERAL: Well-developed, obese female currently is awake, alert, in no acute distress. VITAL SIGNS: Temperature is 97.8, pulse is 64, blood pressure 144/77, respiratory rate 16, oxygen s aturation is 95% on room air. The patient had a blood pressure of 200/100 on admission to the [facility] room. HEENT: Head is atraumatic, normocephalic. Pupils equal, round, reactive to light and accommodation . Oral mucosa is pink and moist. NECK: Supple, no cervical lymphadenopathy, no thyromegaly. LUNGS: Clear bilaterally. There is no rhonchi, wheezes, rales noted. CARDIOVASCULAR: Normal S1, S2. No murmurs, gallops, clicks, rubs noted. MUSCULOSKELETAL: Patient has right breast with an intact surgical incision; however, there is swell ing and erythema in the right lateral breast. ABDOMEN: Protuberant, soft, nondistended, nontender. Bowel sounds present. There is no guarding, no rebound tenderness. EXTREMITIES: There is no edema, clubbing, cyanosis. Pulses equal bilaterally 2+. SKIN: There is no rash, petechiae noted. NEUROLOGIC: Patient is awake, alert and oriented x4. No focal deficits noted. Motor strength 5/5 in all extremities. LABORATORY DATA: On admission, CBC: White blood cells 5.1, hemoglobin 12.2, hematocrit 36.3, platel ets 292. Chemistry: Sodium is 136, potassium 4.4, chloride 103, carbon dioxide 24, anion gap 13, B UN 9, creatinine 0.46, glucose 98. Lactic acid is 2.3. PT is 12.0, INR is 0.89, APTT is 25.8. IMAGING: Chest x-ray with no acute cardiopulmonary disease. No interval change. ASSESSMENT AND PLAN: 1. Right breast cellulitis versus infected seroma. Continue patient on vancomycin and Zosyn. We w ill ask Dr. Ruby to see patient in infectious disease consultation. Follow up on drainage fluid c ulture. 2. Sepsis secondary to breast cellulitis. Continue antibiotics and IV fluids. 3. Status post right breast mastectomy for invasive cancer of the right breast. Dr. Sheets will be following the patient in general surgery consultation. 4. Hypothyroidism. Continue Synthroid. 5. Gastroesophageal reflux disease, continue omeprazole. 6. We will continue sequential compression device for deep venous thrombosis prophylaxis. Further recommendations based on clinical course. Plan of care discussed with Dr. Tovar. Dictated By: JOHN LEMON FIRE DEPARTMENT BATTALION CHIEF for OPAL TOVAR MD, SR/AMBIKA Conf#: [id number] DID#: [id number]
[2016-12-14] MEDS: PIPER-TAZO 3.375 GM IV (PMX) 100 ML IVPB SCH ×3 (03:14→17:41)
[2016-12-14] MEDS: HYDROCODONE/APAP (5/325) TAB PO PRN ×3 (03:40→23:36)
[2016-12-14] MEDS: PANTOPRAZOLE (EC) 40 MG TAB PO SCH (06:04)
[2016-12-14] MEDS: LEVOTHYROXINE 25 MCG TAB PO SCH (06:04)
[2016-12-14 07:57] LABS: ALBUMIN 3.1 g/dl (3.3-4.9); POTASSIUM 4.2 mmol/L (3.5-5.1)
[2016-12-14 07:59] LABS: BILIRUBIN,INDIRECT 0.2 mg/dl (0-1.1); BILIRUBIN,TOTAL 0.2 mg/dl (0.2-1.3); CREATININE 0.56 mg/dl (0.44-1.00)
[2016-12-14 08:00] LABS: ALBUMIN/GLOBULIN RATIO 1.14; CALCIUM 8.2 mg/dl (8.4-10.2); THYROID STIMULATING HORMONE 5.36 MIU/L (0.465-4.680); TOTAL PROTEIN 5.8 g/dl (6.1-8.1)
[2016-12-14 08:16] VITALS: BP 117/58; RESP 19
[2016-12-14] MEDS ORDERED: NON-FORMULARY/PATIENT OWN MED (Tamoxifen Citrate* 20 MG) PO SCH (09:00)
[2016-12-14] MEDS: TAMOXIFEN 10 MG TAB PO SCH ×2 (09:00→11:21)
[2016-12-14] MEDS ORDERED: NON-FORMULARY/PATIENT OWN MED (Omeprazole* 40 MG) PO SCH (09:00)
[2016-12-14] MEDS ORDERED: KETOROLAC 30 MG INJ IV PRN (11:00)
--- NOTE | 2016-12-14 16:13 | PN ---
Date/Time of Note Date/Time of Note DATE: 12/14/16 TIME: 16:11 Assessment/Plan VTE Prophylaxis VTE Prophylaxis Intervention: SCD's Lines/Catheters IV [facility]ter Type (from [facility]): Peripheral IV Urinary Cath still in place: No Assessment/Plan Chief Complaint/Hosp Course ASSESSMENT AND PLAN: 1. Right breast cellulitis versus infected seroma. Continue patient on vancomycin and Zosyn. Dr. Ruby is following in infectious disease consultation. Follow up on drainage fluid culture. 2. Sepsis secondary to breast cellulitis. Continue antibiotics and IV fluids. 3. Status post right breast mastectomy for invasive cancer of the right breast. Dr. Sheets will be following the patient in general surgery consultation. 4. Hypothyroidism. Continue Synthroid. 5. Gastroesophageal reflux disease, continue omeprazole. Continue sequential compression device for deep venous thrombosis prophylaxis. Further recommendations based on clinical course. Plan of care discussed with Dr. Chu. Problems: Subjective 24 Hr Interval Summary Free Text/Dictation Patient denies any fever denies chills, pain is well controlled, stable blood pressure. Exam/Review of Systems Vital Signs Vitals Vital Signs Date Time Temp Pulse Resp B/P Pulse Ox O2 Delivery O2 Flow Rate FiO2 12/14/16 08:16 98.3 67 19 117/58 97 12/14/16 02:11 Room Air Intake and Output 12/13/16 12/13/16 12/14/16 15:00 23:00 07:00 Intake Total 100 ml 880 ml Output Total 1 ml Balance 100 ml 879 ml Exam PHYSICAL ASSESSMENT: GENERAL: Well-developed, obese female currently is awake, alert, in no acute distress. HEENT: Head is atraumatic, normocephalic. PERRLA. NECK: Supple, no cervical lymphadenopathy, no thyromegaly. LUNGS: Clear bilaterally. There is no rhonchi, wheezes, rales noted. CARDIOVASCULAR: Normal S1, S2. No murmurs, gallops, clicks, rubs noted. MUSCULOSKELETAL: Patient has right breast with an intact surgical incision; however, there is swelling and erythema in the right lateral breast. ABDOMEN: Protuberant, soft, nondistended, nontender. Bowel sounds present. There is no guarding, no rebound tenderness. EXTREMITIES: There is no edema, clubbing, cyanosis. Pulses equal bilaterally 2 +. SKIN: There is no rash, petechiae noted. NEUROLOGIC: Patient is awake, alert and oriented x4. Results Result Diagram: 12/13/16 1747 12/14/16 0542 Results 24 hrs Laboratory Tests Test 12/13/16 17:47 12/13/16 19:40 12/13/16 22:33 12/14/16 05:42 White Blood Count 5.1 Red Blood Count 3.90 L Hemoglobin 12.2 Hematocrit 36.3 L Mean Corpuscular Volume 93.1 Mean Corpuscular Hemoglobin 31.3 Mean Corpuscular Hemoglobin Concent 33.6 Red Cell Distribution Width 13.6 Platelet Count 292 Mean Platelet Volume 10.1 Neutrophils % 55.7 Lymphocytes % 31.4 Monocytes % 8.1 Eosinophils % 3.6 Basophils % 0.8 Nucleated Red Blood Cells % 0.0 Neutrophils # 2.8 Lymphocytes # 1.6 Monocytes # 0.4 Eosinophils # 0.2 Basophils # 0.0 Nucleated Red Blood Cells # 0.0 Prothrombin Time 12.0 L Prothrombin Time Ratio 0.9 INR International Normalized Ratio 0.89 Activated Partial Thromboplast Time 25.8 Sodium Level 136 136 Potassium Level 4.4 4.2 Chloride Level 103 107 Carbon Dioxide Level 24 24 Anion Gap 13 9 Blood Urea Nitrogen 9 9 Creatinine 0.46 0.56 Glucose Level 98 85 Lactic Acid Level 2.3 H 1.8 3.5 H Calcium Level 9.1 8.2 L Total Bilirubin 0.1 L 0.2 Direct Bilirubin 0.00 0.00 Indirect Bilirubin 0.1 0.2 Aspartate Amino Transf (AST/SGOT) 27 20 Alanine Aminotransferase (ALT/SGPT) 42 42 Alkaline Phosphatase 76 65 Total Protein 6.9 5.8 #L Albumin 3.8 3.1 L Globulin 3.10 2.70 Albumin/Globulin Ratio 1.22 1.14 Thyroid Stimulating Hormone (TSH) 5.360 H Medications Medications Current Medications Potassium Chloride/Sodium Chloride (1/2 NS + KCl 20 Meq) 1,000 ml @ 50 mls/hr Q20H IV Last administered on 12/13/16t 22:14; Admin Dose 50 MLS/HR; Start 12/13 at 20:26 Ondansetron HCl (Zofran Inj) 4 mg Q6H PRN IV NAUSEA AND/OR VOMITING; Start at 20:30 Acetaminophen (Tylenol Tab) 650 mg Q6H PRN PO PAIN LEVEL 1-3 OR FEVER Last administered on 12/14/16 08:45; Admin Dose 650 MG; Start 12/13/16 at 20:30 Acetaminophen/ Hydrocodone Bitart ([place] (5/325)) 1 tab Q6H PRN PO MODERATE PAIN LEVEL 4-6 Last administered on 12/14/16 15:34; Admin Dose 1 TAB; Start at 20:30 Docusate Sodium 100 mg 100 mg Q12H PRN PO CONSTIPATION; Start 12/13/16 at 20:30 Piperacillin Sod/ Tazobactam Sod (Zosyn 3.375gm/ 100 ml (Pmx)) 100 ml @ 25 mls/ hr TID@02,10,18 IVPB Last administered on 12/14/16 10:42; Admin Dose 25 MLS/HR ; Start 12/14/16 at 02:00 Pantoprazole (Protonix Tab) 40 mg DAILY@06 PO Last administered on 12/14/16 06 :04; Admin Dose 40 MG; Start 12/14/16 at 06:00 Tamoxifen Citrate 20 mg 20 mg DAILY PO Last administered on 12/14/16 11:21; Admin Dose 20 MG; Start 12/14/16 at 09:00 Vancomycin HCl (Vancocin) 250 ml @ 125 mls/hr Q12H IVPB Last administered on 14:31; Admin Dose 125 MLS/HR; Start 12/14/16 at 02:00 Ketorolac Tromethamine (Toradol) 30 mg Q6H PRN IV PAIN; Start 12/14/16 at 11:00 ; Stop 12/17/16 at 10:59 Miscellaneous Information (*Rx Drug Level Order Reminder*) 1 ONCE ONCE XX ; Start 12/15/16 at 01:00; Stop 12/15/16 at 01:01 JOHN LEMON Dec 14, 2016 16:13
[2016-12-14] MEDS: 1/2 NS + KCL 20 MEQ 1,000 ML IV SCH (16:26)
--- NOTE | 2016-12-14 17:43 | CONS ---
DATE OF ADMISSION: 12/13/2016 DATE OF CONSULTATION: 12/14/2016 TYPE OF CONSULTATION: Infectious Disease. REASON FOR CONSULTATION: Antibiotic management. HISTORY OF PRESENT ILLNESS: Ana Neves is a 61-year-old female who was admitted with right breast tenderness, erythema, status post right partial mastectomy 3 weeks ago. PAST MEDICAL HISTORY: Her past problems include: 1. Status post hysterectomy many years ago. The patient underwent right partial mastectomy for inv asive cancer of the breast On 11/19/2016 and was discharged home. She had some swelling and erythem a and presented to the emergency room. She was given clindamycin with no improvement. She had an a ppointment to see Dr. Sheets today. The patient was sent for drainage by radiology of the seroma, po ssible abscess of the right breast. She was also sent to [facility] ER for IV antibiotics and she did not respond to clindamycin. She had chills at home. The patient complains of severe te nderness of the right breast and axilla. She was started on vancomycin and Zosyn in the emergency r oom. 2. Her past medical history is positive for bilateral cancer of the breast, hypothyroidism and pept ic ulcer disease. The patient had a hysterectomy many years ago and bilateral partial mastectomy. She has a left mastectomy in 2016 and right partial mastectomy as noted on 11/19/2016. ALLERGIES: SHE IS ALLERGIC TO MORPHINE. PAST SURGICAL HISTORY: Operations as outlined. FAMILY HISTORY: Noncontributory. SOCIAL HISTORY: She does not smoke, drink or abuse drugs. ALLERGIES: MORPHINE. MEDICATIONS: Per chart. REVIEW OF SYSTEMS: As per HPI. PHYSICAL EXAMINATION: GENERAL: She is a well-developed, obese female who is alert, responsive, in no acute distress. VITAL SIGNS: Stable. She is afebrile. Blood pressure was elevated in the ER, currently is stable at 117/60. SKIN: Without generalized rash. HEENT: Within normal limits. NECK: Supple. LYMPH NODES: None palpable. CHEST: Decreased breath sounds at the bases. HEART: Without murmur or gallop. ABDOMEN: She has right breast with an intact surgical incision, but there is swelling and erythema of the right lateral breast. HEART: Without murmur or gallop. ABDOMEN: Soft, nontender, without organosplenomegaly or masses. EXTREMITIES: Without cyanosis, clubbing, or edema. RECTAL AND GENITAL: Deferred. NEUROLOGIC: No focal neurological abnormalities. IMPRESSION AND PLAN: Patient currently comes in with mastitis. White count was 5.1. BUN and creat inine 9/0.46. She was started on vancomycin and Zosyn. She will be followed by Dr. Sheets. I will dictate my findings to Dr. Chu. Dictated By: MYRA MASSEY MD, JD/AMBIKA Conf#: [id number] DID#: [id number]
--- NOTE | 2016-12-14 20:18 | CONS ---
DATE OF ADMISSION: 12/13/2016 DATE OF CONSULTATION: 12/14/2016 TYPE OF CONSULTATION: Surgical. Requested for Dr. Sheets and I am seeing the consultation for covering Dr. Sheets. REASON FOR CONSULTATION AND ADMISSION: This is a 61-year-old female who had a partial mastectomy wi th needle local directed and axillary dissection, sentinel lymph node technique on 10/28/2016, and s vale the margin was not clear, she underwent re-excision, partial mastectomy on 11/19/2016. The pat ient was discharged home, later on was followed in the office. Two weeks after the last operation, the patient started to have redness of the right breast and some pain, no fever, questionable chills , so went to the emergency room, was seen in the emergency room and given clindamycin and discharged . The patient took clindamycin for 1 week, didn't have any effect so eventually came back to [facility], Dr. Maciel, and from there was sent to Dr. Sheets' office yesterday. The patient was seen by me in Dr. Sheets' office. There was cellulitis of the right breast. Apparently there was seroma acc umulation, and the radiologist in Dr. Sheets' breast center aspirated the breast and drained 120 mL o f seroma which she told me that it didn't appear infected. In any case, patient was urgently sent t o emergency room and from there was admitted with impression of cellulitis. Also the patient compla ined that had the same kind of redness and probably rash over the dorsal aspect of the right and lef t forearms and some over the anterior aspect of the left leg. PAST MEDICAL HISTORY: Positive of bilateral cancer of the breasts, hypothyroidism, peptic ulcer dis ease. SURGERIES: The patient has had hysterectomy many years ago followed by bilateral mastectomy, partia l. The patient had left partial mastectomy in 2016 and right partial mastectomy 2017 as was mention ed above. FAMILY HISTORY: Noncontributory. SOCIAL HISTORY: Lives at home with family. No smoking, no alcohol. ALLERGIES: THE PATIENT IS ALLERGIC TO MORPHINE. HOME MEDICATIONS: 1. Motrin. 2. Clindamycin. 3. Omeprazole. 4. Tamoxifen. 5. Levothyroxine. REVIEW OF SYSTEMS: The same as mentioned above. PHYSICAL EXAMINATION: GENERAL: Well-developed, well-nourished obese female, awake, alert, oriented x3. VITAL SIGNS: Today, temperature 98.3, heart rate 67, respirations 19, blood pressure 117/58, satura tion 97% on room air. LABORATORY: WBC 5100 with 55% segmented. Chemistry: Blood sugar 98. Sodium, potassium, BUN, crea tinine normal. Lactic acid was 3.5 yesterday. HEENT: Normocephalic, atraumatic. Pupils equally round, reactive to light, accommodation. Oral mu cosa is pink and moist. NECK: Supple. No cervical adenopathy. LUNGS: Clear to auscultation. CARDIOVASCULAR: Normal S1, normal, S2, no murmur. CHEST: Right breast surgery surgical incisions were sutures intact. There is swelling and erythema in the right lateral breast area, slightly decreased compared to yesterday, mild tenderness. ABDOMEN: Protruded with fat and nontender. Bowel sounds are normal. EXTREMITIES: No edema, no clubbing, no cyanosis. Pulses equal bilaterally. SKIN: There are some rashes or erythema over the anterior dorsal aspect of both forearms. IMAGING: Chest x-ray revealed no acute cardiopulmonary disease. ASSESSMENT AND PLAN: 1. Right breast cellulitis versus infected seroma, status post partial mastectomy for invasive canc er of the right breast about 4 weeks ago. 2. The patient has sepsis and cellulitis. The lactic acid is 3.5. The patient started on Zosyn an d vancomycin. 3. Hypothyroidism. Continue Synthroid. 4. Gastroesophageal reflux disease. Continue omeprazole. 5. Continue sequential compression devices for prevention of deep vein thrombosis. I will follow the patient along with other colleagues. Dictated By: GIULIANO RIDER MD PS/AMBIKA Conf#: [id number] DID#: [id number]
[2016-12-15] MEDS: PIPER-TAZO 3.375 GM IV (PMX) 100 ML IVPB SCH (02:24)
[2016-12-15] MEDS: VANCOMYCIN 1 GM in NS 250 ML IVPB SCH (05:04)
[2016-12-15] MEDS: LEVOTHYROXINE 25 MCG TAB PO SCH (05:07)
[2016-12-15] MEDS: PANTOPRAZOLE (EC) 40 MG TAB PO SCH (05:07)
[2016-12-15 05:23] LABS: ADD SCAN DIFF NO
[2016-12-15 05:28] LABS: BASOPHILS % 0.8 % (0.0-2.0); EOSINOPHILS # 0.3 10^3/ul (0.0-0.5); EOSINOPHILS % 7.1 % (0.0-7.0); HEMATOCRIT 33.6 % (37.0-47.0); HEMOGLOBIN 11.1 g/dl (12.0-16.0); LYMPHOCYTES # 1.5 10^3/ul (0.8-2.9); LYMPHOCYTES % 39.7 % (15.0-51.0); MEAN CORPUSCULAR HEMOGLOBIN 30.9 pg (29.0-33.0); MEAN CORPUSCULAR VOLUME 93.6 fl (82.0-101.0); MEAN PLATELET VOLUME 9.9 fl (7.4-10.4); MONOCYTE # 0.3 10^3/ul (0.3-0.9); MONOCYTES % 8.4 % (0.0-11.0); NEUTROPHIL # 1.6 10^3/ul (1.6-7.5); NEUTROPHILS % 43.7 % (39.0-77.0); PLATELET COUNT 243 10^3/UL (140-415); RED BLOOD COUNT 3.59 10^6/ul (4.20-5.40); RED CELL DISTRIBUTION WIDTH 13.7 % (11.5-14.5); WHITE BLOOD COUNT 3.7 10^3/ul (4.8-10.8)
[2016-12-15] MEDS: ACETAMINOPHEN 325 MG TAB PO PRN (05:38)
[2016-12-15 05:42] LABS: POTASSIUM 4.1 mmol/L (3.5-5.1)
[2016-12-15 05:45] LABS: CREATININE 0.52 mg/dl (0.44-1.00)
[2016-12-15 05:46] LABS: CALCIUM 8.6 mg/dl (8.4-10.2)
[2016-12-15 08:48] VITALS: BP 172/86; RESP 20
[2016-12-15] MEDS: HYDROCODONE/APAP (5/325) TAB PO PRN ×2 (08:53→19:57)
[2016-12-15] MEDS: TAMOXIFEN 10 MG TAB PO SCH (08:57)
[2016-12-15] MEDS ORDERED: PIPER-TAZO 3.375 GM IV (PMX) 100 ML IVPB SCH (12:00)
[2016-12-15] MEDS: 1/2 NS + KCL 20 MEQ 1,000 ML IV SCH (13:05)
[2016-12-15] MEDS: VANCOMYCIN 1.5 GM in SOD CHLORIDE 0.9% 250 ML IVPB SCH (13:34)
--- NOTE | 2016-12-15 15:07 | PN ---
DATE: 12/15/2016 SUBJECTIVE: No acute changes. The patient is alert, sitting up in a chair. Looks comfortable, no fevers. WBC 3.7, no shift, no bands. BUN 7, creatinine 0.52. MICROBIOLOGY: Blood cultures negative. ANTIMICROBIALS: The patient is on vancomycin and Zosyn. PHYSICAL EXAMINATION: GENERAL: This is an obese, well-developed, elderly woman who is alert, in no distress. HEENT: Head atraumatic, normocephalic. Sclerae anicteric. Buccal mucosa pink. NECK: Supple. CHEST: Rise symmetrical. Breath sounds clear. HEART: S1, S2. ABDOMEN: Soft. Bowel sounds present. EXTREMITIES: Without cyanosis. SKIN: With right breast resolving erythema. ASSESSMENT: 1. Right breast cellulitis, questionable seroma status post partial mastectomy. 2. Right breast carcinoma. 3. Obesity. PLAN: Continue vancomycin, change Zosyn to Rocephin. Swab nares for methicillin-resistant Staphylo coccus aureus. Follow surgical recommendations. Await for clinical improvement. Dictated By: JOHNNIE JONES ASSET PROTECTION OFFICER for MYRA ALMONTE/AMBIKA Conf#: [id number] DID#: [id number]
[2016-12-15] MEDS: CEFTRIAXONE 1 GM/50 ML (PMX) 50 ML IVPB SCH (16:10)
--- NOTE | 2016-12-15 19:11 | PN ---
Date/Time of Note Date/Time of Note DATE: 12/15/16 TIME: 19:09 Assessment/Plan VTE Prophylaxis VTE Prophylaxis Intervention: SCD's Lines/Catheters [facility]ter [facility]from [facility] [place] Urinary Cath still in place: No Assessment/Plan Chief Complaint/Hosp Course ASSESSMENT AND PLAN: 1. Right breast cellulitis versus infected seroma. Dr. Rbuy is following in infectious disease consultation. Continue antibiotics per ID, follow up on drainage fluid culture. 2. Sepsis secondary to breast cellulitis, resolving. 3. Status post right breast mastectomy for invasive cancer of the right breast. Dr. Sheets is following the patient in general surgery consultation. 4. Hypothyroidism. Continue Synthroid. 5. Gastroesophageal reflux disease, continue omeprazole. Continue sequential compression device for deep venous thrombosis prophylaxis. Further recommendations based on clinical course. Plan of care discussed with Dr. Chu. Problems: Subjective 24 Hr Interval Summary Free Text/Dictation Patient's continues to have erythema and tenderness of the right breast, denies fevers. Exam/Review of Systems Vital Signs Vitals Vital Signs Date Time Temp Pulse Resp B/P Pulse Ox O2 Delivery O2 Flow Rate FiO2 12/15/16 08:48 98.9 67 20 172/86 98 12/14/16 02:11 Room Air Intake and Output 12/14/16 12/14/16 12/15/16 15:00 23:00 07:00 Intake Total 200 ml 1840 ml 1075 ml Balance 200 ml 1840 ml 1075 ml Exam PHYSICAL ASSESSMENT: GENERAL: Well-developed, obese female currently is awake, alert, in no acute distress. HEENT: Head is atraumatic, normocephalic. PERRLA. NECK: Supple, no cervical lymphadenopathy, no thyromegaly. LUNGS: Clear bilaterally. There is no rhonchi, wheezes, rales noted. CARDIOVASCULAR: Normal S1, S2. No murmurs, gallops, clicks, rubs noted. MUSCULOSKELETAL: Patient has right breast with an intact surgical incision; however, there is swelling and erythema in the right lateral breast. ABDOMEN: Protuberant, soft, nondistended, nontender. Bowel sounds present. There is no guarding, no rebound tenderness. EXTREMITIES: There is no edema, clubbing, cyanosis. Pulses equal bilaterally 2 +. SKIN: There is no rash, petechiae noted. NEUROLOGIC: Patient is awake, alert and oriented x4. Results Result Diagram: 12/15/16 0440 12/15/16 0440 Results 24 hrs Laboratory Tests Test 12/15/16 00:52 12/15/16 04:40 Vancomycin Level Trough 7.9 L White Blood Count 3.7 #L Red Blood Count 3.59 L Hemoglobin 11.1 L Hematocrit 33.6 L Mean Corpuscular Volume 93.6 Mean Corpuscular Hemoglobin 30.9 Mean Corpuscular Hemoglobin Concent 33.0 Red Cell Distribution Width 13.7 Platelet Count 243 Mean Platelet Volume 9.9 Neutrophils % 43.7 Lymphocytes % 39.7 Monocytes % 8.4 Eosinophils % 7.1 H Basophils % 0.8 Nucleated Red Blood Cells % 0.0 Neutrophils # 1.6 Lymphocytes # 1.5 Monocytes # 0.3 Eosinophils # 0.3 Basophils # 0.0 Nucleated Red Blood Cells # 0.0 Sodium Level 137 Potassium Level 4.1 Chloride Level 107 Carbon Dioxide Level 24 Anion Gap 10 Blood Urea Nitrogen 7 Creatinine 0.52 Glucose Level 91 Calcium Level 8.6 Medications Medications Current Medications Potassium Chloride/Sodium Chloride (1/2 NS + KCl 20 Meq) 1,000 ml @ 50 mls/hr Q20H IV Last administered on 12/15/16 13:05; Admin Dose 50 MLS/HR; Start 12/13 at 20:26 Ondansetron HCl (Zofran Inj) 4 mg Q6H PRN IV NAUSEA AND/OR VOMITING; Start at 20:30 Acetaminophen (Tylenol Tab) 650 mg Q6H PRN PO PAIN LEVEL 1-3 OR FEVER Last administered on 12/15/16 05:38; Admin Dose 650 MG; Start 12/13/16 at 20:30 Acetaminophen/ Hydrocodone Bitart ([place] (5/325)) 1 tab Q6H PRN PO MODERATE PAIN LEVEL 4-6 Last administered on 12/15/16 08:53; Admin Dose 1 TAB; Start at 20:30 Docusate Sodium (Colace) 100 mg Q12H PRN PO CONSTIPATION; Start 12/13/16 at 20: 30 Pantoprazole (Protonix Tab) 40 mg DAILY@06 PO Last administered on 12/15/16 05 :07; Admin Dose 40 MG; Start 12/14/16 at 06:00 Tamoxifen Citrate (Nolvadex) 20 mg DAILY PO Last administered on 12/15/16 08: 57; Admin Dose 20 MG; Start 12/14/16 at 09:00 Ketorolac Tromethamine 30 mg 30 mg Q6H PRN IV PAIN; Start 12/14/16 at 11:00; Stop 12/17/16 at 10:59 Vancomycin HCl 1.5 gm/Sodium Chloride 250 ml @ 83.333 mls/ hr Q12H IVPB Last administered on 12/15/16 13:34; Admin Dose 83.333 MLS/HR; Start 12/15/16 at 14: 00 Ceftriaxone Sodium (Rocephin) 50 ml @ 100 mls/hr Q24H IVPB Last administered on 12/15/16 16:10; Admin Dose 100 MLS/HR; Start 12/15/16 at 15:00 JOHN LEMON Dec 15, 2016 19:11
[2016-12-15 19:36] VITALS: BP 161/77; RESP 18
[2016-12-15 20:30] VITALS: BP 132/80
[2016-12-16] MEDS: VANCOMYCIN 1.5 GM in SOD CHLORIDE 0.9% 250 ML IVPB SCH ×2 (01:53→14:13)
[2016-12-16] MEDS: LEVOTHYROXINE 25 MCG TAB PO SCH (05:12)
[2016-12-16] MEDS: PANTOPRAZOLE (EC) 40 MG TAB PO SCH (05:12)
[2016-12-16 06:05] LABS: ADD SCAN DIFF NO
[2016-12-16 06:15] LABS: BASOPHILS % 0.8 % (0.0-2.0); EOSINOPHILS # 0.3 10^3/ul (0.0-0.5); HEMATOCRIT 33.2 % (37.0-47.0); LYMPHOCYTES # 1.3 10^3/ul (0.8-2.9); LYMPHOCYTES % 33.6 % (15.0-51.0); MEAN CORPUSCULAR HEMOGLOBIN 30.9 pg (29.0-33.0); MEAN CORPUSCULAR HGB CONC 33.1 g/dl (32.0-37.0); MEAN CORPUSCULAR VOLUME 93.3 fl (82.0-101.0); MEAN PLATELET VOLUME 9.7 fl (7.4-10.4); MONOCYTE # 0.3 10^3/ul (0.3-0.9); MONOCYTES % 7.3 % (0.0-11.0); PLATELET COUNT 239 10^3/UL (140-415); RED BLOOD COUNT 3.56 10^6/ul (4.20-5.40); RED CELL DISTRIBUTION WIDTH 13.7 % (11.5-14.5)
[2016-12-16 06:42] LABS: POTASSIUM 3.9 mmol/L (3.5-5.1)
[2016-12-16 06:44] LABS: CREATININE 0.49 mg/dl (0.44-1.00)
[2016-12-16 06:45] LABS: CALCIUM 8.5 mg/dl (8.4-10.2)
[2016-12-16 08:01] VITALS: BP 150/72; RESP 18
[2016-12-16] MEDS: 1/2 NS + KCL 20 MEQ 1,000 ML IV SCH ×2 (08:26→08:57)
[2016-12-16] MEDS: TAMOXIFEN 10 MG TAB PO SCH (08:41)
--- NOTE | 2016-12-16 14:12 | PN ---
DATE: 12/16/2016 SUBJECTIVE: Still complaining of some mild pain in the right breast area, but states that the pain is much better than the time of admission. OBJECTIVE: VITAL SIGNS: Temperature 98.2, pulse rate is 63, respirations 18, blood pressure 150/72, saturation 96% on room air. RIGHT BREAST: There is still some cellulitis over the right lower outer quadrant of the right breas t. Mild tenderness on movement of the breast. Axilla is clear and clean. No tenderness. She has full range of motion of the right shoulder and hand. LABORATORY DATA: Today, WBC is 4000 with 51% neutrophils, hemoglobin 11, hematocrit 33.2. Chemistr y: Sodium and potassium normal, BUN and creatinine normal. ASSESSMENT: The patient with postop partial mastectomy and axillary dissection presented with cellu litis and possible mastitis. The patient was admitted, started on antibiotics ceftriaxone, vancomyc in and Zosyn. We have changed it since 12/15/2016 on only vancomycin. Apparently, the aspiration w as done in the breast center outside, 120 mL of yellowish clear liquid was aspirated. Unfortunately , it was not sent for culture. PLAN: We will continue antibiotics. We will get an ultrasound to find out how much fluid has accum ulated in the cavity of the partial mastectomy area. Then we will make a decision by tomorrow [facility] er we have to drain it or we do not have to drain it. Dictated By: GIULIANO RIDER MD PS/NTS Conf#: [id number] DID#: [id number]
--- NOTE | 2016-12-16 14:29 | PN ---
Date/Time of Note Date/Time of Note DATE: 12/16/16 TIME: 14:28 Assessment/Plan Lines/Catheters IV Catheter Type (from [facility]): Peripheral IV Urinary Cath still in place: No Assessment/Plan Assessment/Plan 1. Right breast cellulitis versus infected seroma. Dr. Ruby is following in infectious disease consultation. Continue antibiotics per ID, follow up on drainage fluid culture. 2. Sepsis secondary to breast cellulitis, resolving. 3. Status post right breast mastectomy for invasive cancer of the right breast. Dr. Sheets is following the patient in general surgery consultation. 4. Hypothyroidism. Continue Synthroid. 5. Gastroesophageal reflux disease, continue omeprazole. Continue sequential compression device for deep venous thrombosis prophylaxis. Further recommendations based on clinical course. Plan of care discussed with Dr. Chu. Subjective 24 Hr Interval Summary Free Text/Dictation nad, resting in bed US right breast pending- fu US results. dw staff Eyes: no complaints ENT: no complaints Respiratory: no complaints Cardiovascular: no complaints Gastrointestinal: constipation, no complaints Musculoskeletal: back pain, no complaints Skin: no complaints Neurologic: no complaints Exam/Review of Systems Vital Signs Vitals Vital Signs Date Time Temp Pulse Resp B/P Pulse Ox O2 Delivery O2 Flow Rate FiO2 12/16/16 08:01 98.2 63 18 150/72 96 12/14/16 02:11 Room Air Intake and Output 12/15/16 12/15/16 12/16/16 15:00 23:00 07:00 Intake Total 100 ml 1800 ml 905 ml Output Total 2650 ml 950 ml Balance 100 ml -850 ml -45 ml Exam Constitutional: alert, oriented, well developed Psych: nl mood/affect Head: atraumatic Eyes: EOMI ENMT: nl external ears & nose Neck: supple Respiratory: clear to auscultation Cardiovascular: nl pulses Gastrointestinal: non-tender, soft Musculoskeletal: nl extremities to inspection Extremities: normal pulses Neurological: nl mental status Lymph: nontender Results Result Diagram: 12/16/16 0540 12/16/16 0540 Results 24 hrs Laboratory Tests Test 12/16/16 05:40 White Blood Count 4.0 L Red Blood Count 3.56 L Hemoglobin 11.0 L Hematocrit 33.2 L Mean Corpuscular Volume 93.3 Mean Corpuscular Hemoglobin 30.9 Mean Corpuscular Hemoglobin Concent 33.1 Red Cell Distribution Width 13.7 Platelet Count 239 Mean Platelet Volume 9.7 Neutrophils % 51.0 Lymphocytes % 33.6 Monocytes % 7.3 Eosinophils % 7.0 Basophils % 0.8 Nucleated Red Blood Cells % 0.0 Neutrophils # 2.0 Lymphocytes # 1.3 Monocytes # 0.3 Eosinophils # 0.3 Basophils # 0.0 Nucleated Red Blood Cells # 0.0 Sodium Level 136 Potassium Level 3.9 Chloride Level 106 Carbon Dioxide Level 25 Anion Gap 9 Blood Urea Nitrogen 7 Creatinine 0.49 Glucose Level 89 Calcium Level 8.5 Medications Medications Current Medications Potassium Chloride/Sodium Chloride (09/20 NS + KCl 20 Meq) 1,000 ml @ 50 mls/hr Q20H IV Last administered on 12/16/16 08:57; Admin Dose 50 MLS/HR; Start 12/13 at 20:26 Ondansetron HCl (Zofran Inj) 4 mg Q6H PRN IV NAUSEA AND/OR VOMITING; Start at 20:30 Acetaminophen (Tylenol Tab) 650 mg Q6H PRN PO PAIN LEVEL 1-3 OR FEVER Last administered on 12/15/16 05:38; Admin Dose 650 MG; Start 12/13/16 at 20:30 Acetaminophen/ Hydrocodone Bitart ([place] (5/325)) 1 tab Q6H PRN PO MODERATE PAIN LEVEL 4-6 Last administered on 12/15/16 19:57; Admin Dose 1 TAB; Start at 20:30 Docusate Sodium (Colace) 100 mg Q12H PRN PO CONSTIPATION Last administered on 19:57; Admin Dose 100 MG; Start 12/13/16 at 20:30 Pantoprazole (Protonix Tab) 40 mg DAILY@06 PO Last administered on 12/16/16 05 :12; Admin Dose 40 MG; Start 12/14/16 at 06:00 Tamoxifen Citrate (Nolvadex) 20 mg DAILY PO Last administered on 12/16/16 08: 41; Admin Dose 20 MG; Start 12/14/16 at 09:00 Ketorolac Tromethamine 30 mg 30 mg Q6H PRN IV PAIN; Start 12/14/16 at 11:00; Stop 12/17/16 at 10:59 Vancomycin HCl 1.5 gm/Sodium Chloride 250 ml @ 83.333 mls/ hr Q12H IVPB Last administered on 12/16/16 14:13; Admin Dose 83.333 MLS/HR; Start 12/15/16 at 14: 00 Ceftriaxone Sodium (Rocephin) 50 ml @ 100 mls/hr Q24H IVPB Last administered on 12/15/16 16:10; Admin Dose 100 MLS/HR; Start 12/15/16 at 15:00 Miscellaneous Information (*Rx Drug Level Order Reminder*) VANCO TROUGH @ 0, 100 ON... ONCE ONCE XX ; Start 12/17/16 at 01:00; Stop 12/17/16 at 01:01 PHILL RAY Dec 16, 2016 14:29
--- NOTE | 2016-12-16 16:14 | CONS ---
Date/Time of Note Date/Time of Note DATE: 12/16/16 TIME: 16:12 Assessment/Plan Assessment/Plan Chief Complaint/Hosp Course SUBJECTIVE: No acute changes. The patient is alert, Looks comfortable, no fevers. MICROBIOLOGY: Blood cultures negative. ANTIMICROBIALS: The patient is on vancomycin and Rocephin PHYSICAL EXAMINATION: GENERAL: This is an obese, well-developed, elderly woman who is alert , in no distress. HEENT: Head atraumatic, normocephalic. Sclerae anicteric. Buccal mucosa pink. NECK: Supple. CHEST: Rise symmetrical. Breath sounds clear. HEART: S1, S2. ABDOMEN: Soft. Bowel sounds present. EXTREMITIES: Without cyanosis. SKIN: With right breast resolving erythema. ASSESSMENT: 1. Right breast cellulitis, questionable seroma status post partial mastectomy. 2. Right breast carcinoma. 3. Obesity. PLAN: Stable, continue abx, f/u surgical rec-s==> pending US. DW pt/family Problems: Consultation Date/Type/Reason Admit Date/Time Dec 13, 2016 at 18:18 Initial Consult Date Type of Consultation: id Exam/Review of Systems Vital Signs Vitals Vital Signs Date Time Temp Pulse Resp B/P Pulse Ox O2 Delivery O2 Flow Rate FiO2 12/16/16 08:01 98.2 63 18 150/72 96 12/14/16 02:11 Room Air Intake and Output 12/15/16 12/15/16 12/16/16 15:00 23:00 07:00 Intake Total 100 ml 1800 ml 905 ml Output Total 2650 ml 950 ml Balance 100 ml -850 ml -45 ml Results Result Diagram: 12/16/16 0540 12/16/16 0540 Results 24 hrs Laboratory Tests Test 12/16/16 05:40 White Blood Count 4.0 L Red Blood Count 3.56 L Hemoglobin 11.0 L Hematocrit 33.2 L Mean Corpuscular Volume 93.3 Mean Corpuscular Hemoglobin 30.9 Mean Corpuscular Hemoglobin Concent 33.1 Red Cell Distribution Width 13.7 Platelet Count 239 Mean Platelet Volume 9.7 Neutrophils % 51.0 Lymphocytes % 33.6 Monocytes % 7.3 Eosinophils % 7.0 Basophils % 0.8 Nucleated Red Blood Cells % 0.0 Neutrophils # 2.0 Lymphocytes # 1.3 Monocytes # 0.3 Eosinophils # 0.3 Basophils # 0.0 Nucleated Red Blood Cells # 0.0 Sodium Level 136 Potassium Level 3.9 Chloride Level 106 Carbon Dioxide Level 25 Anion Gap 9 Blood Urea Nitrogen 7 Creatinine 0.49 Glucose Level 89 Calcium Level 8.5 Medications Medications Current Medications Potassium Chloride/Sodium Chloride (1/2 NS + KCl 20 Meq) 1,000 ml @ 50 mls/hr Q20H IV Last administered on 12/16/16 08:57; Admin Dose 50 MLS/HR; Start 12/13 at 20:26 Ondansetron HCl (Zofran Inj) 4 mg Q6H PRN IV NAUSEA AND/OR VOMITING; Start at 20:30 Acetaminophen (Tylenol Tab) 650 mg Q6H PRN PO PAIN LEVEL 1-3 OR FEVER Last administered on 12/15/16 05:38; Admin Dose 650 MG; Start 12/13/16 at 20:30 Acetaminophen/ Hydrocodone Bitart ([place] (5/325)) 1 tab Q6H PRN PO MODERATE PAIN LEVEL 4-6 Last administered on 12/15/16 19:57; Admin Dose 1 TAB; Start at 20:30 Docusate Sodium (Colace) 100 mg Q12H PRN PO CONSTIPATION Last administered on 19:57; Admin Dose 100 MG; Start 12/13/16 at 20:30 Pantoprazole (Protonix Tab) 40 mg DAILY@06 PO Last administered on 12/16/16 05 :12; Admin Dose 40 MG; Start 12/14/16 at 06:00 Tamoxifen Citrate (Nolvadex) 20 mg DAILY PO Last administered on 12/16/16 08: 41; Admin Dose 20 MG; Start 12/14/16 at 09:00 Ketorolac Tromethamine 30 mg 30 mg Q6H PRN IV PAIN; Start 12/14/16 at 11:00; Stop 12/17/16 at 10:59 Vancomycin HCl 1.5 gm/Sodium Chloride 250 ml @ 83.333 mls/ hr Q12H IVPB Last administered on 12/16/16 14:13; Admin Dose 83.333 MLS/HR; Start 12/15/16 at 14: 00 Ceftriaxone Sodium (Rocephin) 50 ml @ 100 mls/hr Q24H IVPB Last administered on 3/29/17at 16:10; Admin Dose 100 MLS/HR; Start 12/15/16 at 15:00 Miscellaneous Information (*Rx Drug Level Order Reminder*) VANCO TROUGH @ 0, 100 ON... ONCE ONCE XX ; Start 12/17/16 at 01:00; Stop 12/17/16 at 01:01 JOHNNIE JONES NP Dec 16, 2016 16:14
[2016-12-16] MEDS: CEFTRIAXONE 1 GM/50 ML (PMX) 50 ML IVPB SCH (17:08)
--- NOTE | 2016-12-16 19:58 | RADRPT ---
PROCEDURE: Right breast ultrasound. CLINICAL INDICATION: History of right breast surgery. Right breast pain and swelling. TECHNIQUE: High-resolution sonography of the right breast was performed in the axial and sagittal planes. COMPARISON: No prior study is available for comparison. FINDINGS: In the 9 o'clock position of the right breast, there is a fluid collection measuring 7.3 x 3.0 x 4.7 cm. There are internal echoes and multiple septations. The breast parenchyma is otherwise normal with no cystic or solid mass elsewhere. IMPRESSION: 1. Fluid collection in the 9 o'clock position of the right breast measuring 7.3 x 3.0 x 4.7 cm. Th is may be due to abscess or hematoma. Clinical correlation advised. 2. Any further management regarding any breast symptoms should be based upon clinical grounds. RPTAT: QQ .Nickolas Zavala MD, MD Date Time Electronically viewed and signed by .Nickolas Zavala MD, MD on 12/16/2016 19:58 .R/
[2016-12-16 20:49] VITALS: BP 145/84; RESP 18
[2016-12-17] MEDS: VANCOMYCIN 1.5 GM in SOD CHLORIDE 0.9% 250 ML IVPB SCH ×2 (02:10→13:25)
[2016-12-17 05:51] LABS: ADD SCAN DIFF NO
[2016-12-17 06:05] LABS: BASOPHILS % 0.6 % (0.0-2.0); EOSINOPHILS # 0.3 10^3/ul (0.0-0.5); EOSINOPHILS % 5.7 % (0.0-7.0); HEMATOCRIT 32.4 % (37.0-47.0); HEMOGLOBIN 10.9 g/dl (12.0-16.0); LYMPHOCYTES # 1.5 10^3/ul (0.8-2.9); LYMPHOCYTES % 30.9 % (15.0-51.0); MEAN CORPUSCULAR HEMOGLOBIN 31.2 pg (29.0-33.0); MEAN CORPUSCULAR HGB CONC 33.6 g/dl (32.0-37.0); MEAN CORPUSCULAR VOLUME 92.8 fl (82.0-101.0); MEAN PLATELET VOLUME 9.9 fl (7.4-10.4); MONOCYTE # 0.5 10^3/ul (0.3-0.9); MONOCYTES % 10.4 % (0.0-11.0); NEUTROPHIL # 2.5 10^3/ul (1.6-7.5); NEUTROPHILS % 52.2 % (39.0-77.0); PLATELET COUNT 258 10^3/UL (140-415); RED BLOOD COUNT 3.49 10^6/ul (4.20-5.40); RED CELL DISTRIBUTION WIDTH 13.7 % (11.5-14.5); WHITE BLOOD COUNT 4.7 10^3/ul (4.8-10.8)
[2016-12-17 06:08] LABS: POTASSIUM 3.8 mmol/L (3.5-5.1)
[2016-12-17 06:11] LABS: CREATININE 0.55 mg/dl (0.44-1.00)
[2016-12-17 06:12] LABS: CALCIUM 8.7 mg/dl (8.4-10.2)
[2016-12-17] MEDS: LEVOTHYROXINE 25 MCG TAB PO SCH (06:31)
[2016-12-17] MEDS: PANTOPRAZOLE (EC) 40 MG TAB PO SCH (06:31)
[2016-12-17 08:06] VITALS: BP 131/61; RESP 16
[2016-12-17] MEDS: TAMOXIFEN 10 MG TAB PO SCH (08:44)
--- NOTE | 2016-12-17 16:13 | CONS ---
Date/Time of Note Date/Time of Note DATE: 12/17/16 TIME: 16:12 Assessment/Plan Assessment/Plan Chief Complaint/Hosp Course SUBJECTIVE: No acute changes. The patient is alert, Looks comfortable, no fevers. MICROBIOLOGY: Blood cultures negative. ANTIMICROBIALS: Vancomycin and Rocephin PHYSICAL EXAMINATION: GENERAL: This is an obese, well-developed, elderly woman who is alert , in no distress. HEENT: Head atraumatic, normocephalic. Sclerae anicteric. Buccal mucosa pink. NECK: Supple. CHEST: Rise symmetrical. Breath sounds clear. HEART: S1, S2. ABDOMEN: Soft. Bowel sounds present. EXTREMITIES: Without cyanosis. SKIN: With right breast resolving erythema. ASSESSMENT: 1. Right breast cellulitis, questionable seroma vs abscess per US, status post partial mastectomy. 2. Right breast carcinoma. 3. Obesity. PLAN: Stable, continue abx, f/u surgical rec-s DW pt/staff Problems: Consultation Date/Type/Reason Admit Date/Time Dec 13, 2016 at 18:18 Type of Consultation: id Exam/Review of Systems Vital Signs Vitals Vital Signs Date Time Temp Pulse Resp B/P Pulse Ox O2 Delivery O2 Flow Rate FiO2 12/17/16 08:06 97.7 69 16 131/61 98 12/14/16 02:11 Room Air Intake and Output 12/16/16 12/16/16 12/17/16 15:00 23:00 07:00 Intake Total 300 ml 550 ml 1500 ml Balance 300 ml 550 ml 1500 ml Results Result Diagram: 12/17/16 0500 12/17/16 0500 Results 24 hrs Laboratory Tests Test 12/17/16 00:45 12/17/16 05:00 Vancomycin Level Trough 10.4 White Blood Count 4.7 L Red Blood Count 3.49 L Hemoglobin 10.9 L Hematocrit 32.4 L Mean Corpuscular Volume 92.8 Mean Corpuscular Hemoglobin 31.2 Mean Corpuscular Hemoglobin Concent 33.6 Red Cell Distribution Width 13.7 Platelet Count 258 Mean Platelet Volume 9.9 Neutrophils % 52.2 Lymphocytes % 30.9 Monocytes % 10.4 Eosinophils % 5.7 Basophils % 0.6 Nucleated Red Blood Cells % 0.0 Neutrophils # 2.5 Lymphocytes # 1.5 Monocytes # 0.5 Eosinophils # 0.3 Basophils # 0.0 Nucleated Red Blood Cells # 0.0 Sodium Level 141 Potassium Level 3.8 Chloride Level 111 H Carbon Dioxide Level 23 Anion Gap 11 Blood Urea Nitrogen 10 Creatinine 0.55 Glucose Level 122 Calcium Level 8.7 Medications Medications Current Medications Ondansetron HCl (Zofran Inj) 4 mg Q6H PRN IV NAUSEA AND/OR VOMITING; Start at 20:30 Acetaminophen (Tylenol Tab) 650 mg Q6H PRN PO PAIN LEVEL 1-3 OR FEVER Last administered on 12/15/16 05:38; Admin Dose 650 MG; Start 12/13/16 at 20:30 Acetaminophen/ Hydrocodone Bitart ([place] (5/325)) 1 tab Q6H PRN PO MODERATE PAIN LEVEL 4-6 Last administered on 12/15/16 19:57; Admin Dose 1 TAB; Start at 20:30 Docusate Sodium (Colace) 100 mg Q12H PRN PO CONSTIPATION Last administered on 19:57; Admin Dose 100 MG; Start 12/13/16 at 20:30 Pantoprazole (Protonix Tab) 40 mg DAILY@06 PO Last administered on 12/17/16 06 :31; Admin Dose 40 MG; Start 12/14/16 at 06:00 Tamoxifen Citrate 20 mg 20 mg DAILY PO Last administered on 12/17/16 08:44; Admin Dose 20 MG; Start 12/14/16 at 09:00 Vancomycin HCl 1.5 gm/Sodium Chloride 250 ml @ 83.333 mls/ hr Q12H IVPB Last administered on 12/17/16 13:25; Admin Dose 83.333 MLS/HR; Start 12/15/16 at 14: 00 Ceftriaxone Sodium (Rocephin) 50 ml @ 100 mls/hr Q24H IVPB Last administered on 12/16/16 17:08; Admin Dose 100 MLS/HR; Start 12/15/16 at 15:00 JOHNNIE JONES NP Dec 17, 2016 16:13
[2016-12-17] MEDS: CEFTRIAXONE 1 GM/50 ML (PMX) 50 ML IVPB SCH (16:23)
--- NOTE | 2016-12-17 18:31 | PN ---
Date/Time of Note Date/Time of Note DATE: 12/17/16 TIME: 18:26 Assessment/Plan VTE Prophylaxis VTE Prophylaxis Intervention: SCD's Lines/Catheters IV [facility]ter Type [facility]from [facility] Peripheral IV Urinary Cath still in place: No Assessment/Plan Chief Complaint/Hosp Course ASSESSMENT AND PLAN: 1. Right breast cellulitis versus infected seroma. Dr. Ruby is following in infectious disease consultation. Continue antibiotics per ID. 2. Sepsis secondary to breast cellulitis, resolving. 3. Status post right breast mastectomy for invasive cancer of the right breast. Dr. Sheets is following the patient in general surgery consultation. 4. Hypothyroidism. Continue Synthroid. 5. Gastroesophageal reflux disease, continue omeprazole. Continue sequential compression device for deep venous thrombosis prophylaxis. Further recommendations based on clinical course. Plan of care discussed with Dr. Chu. Problems: Subjective 24 Hr Interval Summary Free Text/Dictation Patient remains afebrile, continues to have right breast erythema and swelling, slightly improved compared to admission. Patient states that the pain is better controlled. Exam/Review of Systems Vital Signs Vitals Vital Signs Date Time Temp Pulse Resp B/P Pulse Ox O2 Delivery O2 Flow Rate FiO2 12/17/16 08:06 97.7 69 16 131/61 98 12/14/16 02:11 Room Air Intake and Output 12/16/16 12/16/16 12/17/16 15:00 23:00 07:00 Intake Total 300 ml 550 ml 1500 ml Balance 300 ml 550 ml 1500 ml Exam PHYSICAL ASSESSMENT: GENERAL: Well-developed, obese female currently is awake, alert, in no acute distress. HEENT: Head is atraumatic, normocephalic. PERRLA. NECK: Supple, no cervical lymphadenopathy, no thyromegaly. LUNGS: Clear bilaterally. There is no rhonchi, wheezes, rales noted. CARDIOVASCULAR: Normal S1, S2. No murmurs, gallops, clicks, rubs noted. MUSCULOSKELETAL: Patient has right breast with an intact surgical incision; however, there is swelling and erythema in the right lateral breast. ABDOMEN: Protuberant, soft, nondistended, nontender. Bowel sounds present. There is no guarding, no rebound tenderness. EXTREMITIES: There is no edema, clubbing, cyanosis. Pulses equal bilaterally 2 +. SKIN: There is no rash, petechiae noted. NEUROLOGIC: Patient is awake, alert and oriented x4. Results Result Diagram: 12/17/16 0500 12/17/16 0500 Results 24 hrs Laboratory Tests Test 12/17/16 00:45 12/17/16 05:00 Vancomycin Level Trough 10.4 White Blood Count 4.7 L Red Blood Count 3.49 L Hemoglobin 10.9 L Hematocrit 32.4 L Mean Corpuscular Volume 92.8 Mean Corpuscular Hemoglobin 31.2 Mean Corpuscular Hemoglobin Concent 33.6 Red Cell Distribution Width 13.7 Platelet Count 258 Mean Platelet Volume 9.9 Neutrophils % 52.2 Lymphocytes % 30.9 Monocytes % 10.4 Eosinophils % 5.7 Basophils % 0.6 Nucleated Red Blood Cells % 0.0 Neutrophils # 2.5 Lymphocytes # 1.5 Monocytes # 0.5 Eosinophils # 0.3 Basophils # 0.0 Nucleated Red Blood Cells # 0.0 Sodium Level 141 Potassium Level 3.8 Chloride Level 111 H Carbon Dioxide Level 23 Anion Gap 11 Blood Urea Nitrogen 10 Creatinine 0.55 Glucose Level 122 Calcium Level 8.7 Medications Medications Current Medications Ondansetron HCl (Zofran Inj) 4 mg Q6H PRN IV NAUSEA AND/OR VOMITING; Start at 20:30 Acetaminophen (Tylenol Tab) 650 mg Q6H PRN PO PAIN LEVEL 1-3 OR FEVER Last administered on 12/15/16 05:38; Admin Dose 650 MG; Start 12/13/16 at 20:30 Acetaminophen/ Hydrocodone Bitart ([place] (5/325)) 1 tab Q6H PRN PO MODERATE PAIN LEVEL 4-6 Last administered on 12/15/16 19:57; Admin Dose 1 TAB; Start at 20:30 Docusate Sodium (Colace) 100 mg Q12H PRN PO CONSTIPATION Last administered on 19:57; Admin Dose 100 MG; Start 12/13/16 at 20:30 Pantoprazole (Protonix Tab) 40 mg DAILY@06 PO Last administered on 12/17/16 06 :31; Admin Dose 40 MG; Start 12/14/16 at 06:00 Tamoxifen Citrate 20 mg 20 mg DAILY PO Last administered on 12/17/16 08:44; Admin Dose 20 MG; Start 12/14/16 at 09:00 Vancomycin HCl 1.5 gm/Sodium Chloride 250 ml @ 83.333 mls/ hr Q12H IVPB Last administered on 12/17/16 13:25; Admin Dose 83.333 MLS/HR; Start 12/15/16 at 14: 00 Ceftriaxone Sodium (Rocephin) 50 ml @ 100 mls/hr Q24H IVPB Last administered on 12/17/16 16:23; Admin Dose 100 MLS/HR; Start 12/15/16 at 15:00 JOHN LEMON Dec 17, 2016 18:31 JOHN LEMON Dec 17, 2016 18:31
[2016-12-17 21:44] VITALS: BP 144/82; RESP 20
[2016-12-18] MEDS: VANCOMYCIN 1.5 GM in SOD CHLORIDE 0.9% 250 ML IVPB SCH ×2 (01:49→14:00)
[2016-12-18 05:46] LABS: ADD SCAN DIFF NO
[2016-12-18 06:04] LABS: BASOPHILS % 0.7 % (0.0-2.0); EOSINOPHILS # 0.3 10^3/ul (0.0-0.5); EOSINOPHILS % 5.6 % (0.0-7.0); HEMATOCRIT 32.5 % (37.0-47.0); HEMOGLOBIN 11.1 g/dl (12.0-16.0); LYMPHOCYTES # 1.6 10^3/ul (0.8-2.9); LYMPHOCYTES % 29.8 % (15.0-51.0); MEAN CORPUSCULAR HEMOGLOBIN 31.5 pg (29.0-33.0); MEAN CORPUSCULAR HGB CONC 34.2 g/dl (32.0-37.0); MEAN CORPUSCULAR VOLUME 92.3 fl (82.0-101.0); MEAN PLATELET VOLUME 9.8 fl (7.4-10.4); MONOCYTE # 0.4 10^3/ul (0.3-0.9); MONOCYTES % 7.7 % (0.0-11.0); PLATELET COUNT 261 10^3/UL (140-415); RED BLOOD COUNT 3.52 10^6/ul (4.20-5.40); RED CELL DISTRIBUTION WIDTH 13.6 % (11.5-14.5); WHITE BLOOD COUNT 5.3 10^3/ul (4.8-10.8)
[2016-12-18] MEDS: PANTOPRAZOLE (EC) 40 MG TAB PO SCH (06:06)
[2016-12-18] MEDS: LEVOTHYROXINE 25 MCG TAB PO SCH (06:06)
[2016-12-18 06:12] LABS: CREATININE 0.48 mg/dl (0.44-1.00)
[2016-12-18 06:13] LABS: CALCIUM 8.5 mg/dl (8.4-10.2)
[2016-12-18 07:20] VITALS: BP 130/71; RESP 16
[2016-12-18] MEDS: TAMOXIFEN 10 MG TAB PO SCH (09:12)
[2016-12-18 09:30] VITALS: PULSE 68
[2016-12-18] MEDS ORDERED: CEPH500C PO (13:47)
[2016-12-18] MEDS: CEFTRIAXONE 1 GM/50 ML (PMX) 50 ML IVPB SCH (14:40)
--- NOTE | 2016-12-18 14:53 | PN ---
DATE: 12/18/2016 SUBJECTIVE: Feels much better. No more pain. This patient was admitted because of cellulitis or m astitis on the right breast, post partial mastectomy and axillary dissection. Blood culture has bee n negative. On admission, leukocyte count was normal. The heart rate was 95. The patient was star mague on antibiotic IV. Infectious disease was involved. No fever. But there was cellulitis over th e breast obviously. OBJECTIVE: VITAL SIGNS: Today, temperature is 98.4, heart rate is 59 to 68, respirations 16, blood pressure 13 0/71, saturation 97% on room air. BREASTS: Today, slight redness and erythema is still on the right breast, but touching, pressure an d movement of the breast is not painful. Axillary area is clean and clear. LABORATORY DATA: Sodium, potassium normal. BUN and creatinine normal. Hematology: WBC 5300 with 56% neutrophils, hemoglobin 11.1, hematocrit 32.5, stable. MICROBIOLOGY: Blood culture has been negative. ASSESSMENT AND PLAN: I saw the patient with Dr. Sheets yesterday, which was Tuesday12/17/2016. He s uggested that the patient can be discharged to be followed in his office. Plan to discharge the pat ient today with antibiotics per recommendation of infectious disease. Followup by Dr. Sheets in his office next week. Dictated By: GIULIANO RIDER MD PS/NTS Conf#: [id number] DID#: [id number]
--- NOTE | 2016-12-23 12:30 | DS ---
Date/Time of Note Date/Time of Note DATE: 12/23/16 TIME: 12:29 Discharge Summary Admission/Discharge Info Admit Date/Time Dec 13, 2016 at 18:18 Discharge Date/Time Dec 18, 2016 at 16:25 Final Diagnosis 1) mastitis Hospital Course Patient comes in with evidence of mastitis after having mastectomy. Patient given intravenous antibiotics and slowly improved. Patient was deemed to be improved and stable to go home on oral antibiotics. Patient will follow up with surgery. ASSESSMENT AND PLAN: 1. Right breast cellulitis versus infected seroma. Dr. Ruby is following in infectious disease consultation. Continue antibiotics per ID. 2. Sepsis secondary to breast cellulitis, resolving. 3. Status post right breast mastectomy for invasive cancer of the right breast. Dr. Sheets is following the patient in general surgery consultation. 4. Hypothyroidism. Continue Synthroid. 5. Gastroesophageal reflux disease, continue omeprazole. Continue sequential compression device for deep venous thrombosis prophylaxis. Further recommendations based on clinical course. Plan of care discussed with Dr. Chu. Home Meds Active Scripts Cephalexin* (Cephalexin*) 500 Mg Capsule, 500 MG PO Q6 for 10 Days, #40 CAP Prov:STEVEN BEDOLLA 12/18/16 Ibuprofen* (Motrin*) 600 Mg Tab, 600 MG PO Q8 for PAIN AND/OR INFLAMMATION, #30 TAB Prov:LETY GOMEZ MD 12/09/16 Clindamycin Hcl* (Clindamycin Hcl*) 300 Mg Capsule, 300 MG PO Q6 for 10 Days, # 40 CAP Prov:LETY GOMEZ MD 12/09/16 Reported Medications Omeprazole* (Omeprazole*) 20 Mg Capsule., 20 MG PO DAILY, #30 CAP 12/13/16 Omeprazole* (Omeprazole*) 20 Mg Capsule., 40 MG PO DAILY, #30 CAP 12/13/16 Tamoxifen Citrate* (Tamoxifen Citrate*) 20 Mg Tab, 20 MG PO DAILY, TAB 10/28/16 Levothyroxine Sodium* (Levothyroxine Sodium*) 25 Mcg Tablet, 25 MCG PO BEFORE BREAKFAST, #30 TAB 10/28/16 STEVEN BEDOLLA Dec 23, 2016 12:30
== END 2016-12-18 16:25 | disposition home or self-care (01) | DRG 872 ==
LOC: E/R 14:58 → PP2 18:18
PROVIDERS: ADMIT Internal Medicine; ATTEND Internal Medicine
DX: A41.9 Sepsis, unspecified organism (principal); C50.911 Malignant neoplasm of unspecified site of right female breast; N61.0 Mastitis without abscess; K21.9 Gastro-esophageal reflux disease without esophagitis; E03.9 Hypothyroidism, unspecified; E66.9 Obesity, unspecified; Z68.34 Body mass index [BMI] 34.0-34.9, adult; Z90.11 Acquired absence of right breast and nipple
CPT/HCPCS: 36415; 71010; 76642; 80048; 80053; 80202; 83605; 84443; 85025; 85610; 85730; 87040; 87081; 93005; 96365; 96375; J0696; J2543; J3370; J3480; J7030; J7050

== ENCOUNTER 2018-07-27 11:56 | Day surgery (SDC) | END 2018-07-27 16:55 | disposition home or self-care (01) ==